=== PATIENT | female | born 1975 | race Caucasian/White ===

== ENCOUNTER 2021-09-22 08:48 | Observation (INO) | payer OTHER ==
[2021-09-22] MEDS ORDERED: NITROGLYCERIN OINT 1 INCH/GM PACKET TOPICAL STA (08:50)
[2021-09-22] MEDS ORDERED: ASPIRIN 81 MG PO STA (08:50)
--- NOTE | 2021-09-22 09:11 | ED ---
General Adult HPI - General Chief complaint: Chest Pain Stated complaint: Chest pain, WANDA Time Seen by Provider: 09/22/21 08:50 Source: patient, EMS, RN notes reviewed, old records reviewed Limitations: no limitations - History of Present Illness Initial comments: This is a 46-year-old female presents emergency Department complaining of chest pain. Patient states she was just admitted to the Hospital and Discharged Yesterday for Chest Pain. Patient States the Chest Pain However Has Returned and It Feels like an Elephant Sitting on Her Chest and She's Also Complaining of Difficulty Breathing. Patient states she's also been coughing quite a bit coughing up sputum. Patient states she did not get the COVID vaccine. Patient states she's had some abdominal pain but usually only with coughing. Patient denies any recent injury or trauma. Patient denies headache patient denies numbness weakness. Patient denies lightheadedness or dizziness. - Related Data Home Medications Medication Instructions Recorded Confirmed Albuterol Nebulized [Ventolin 2.5 mg INHALATION RT-Q4H PRN 09/22/21 09/22/21 Nebulized] Cyanocobalamin (Vitamin B-12) 1,000 mcg PO DAILY 09/22/21 09/22/21 [Vitamin B-12] DULoxetine HCL [Cymbalta] 60 mg PO DAILY 09/22/21 09/22/21 Dicyclomine [Bentyl] 20 mg PO TID 09/22/21 09/22/21 Furosemide [Lasix] 40 mg PO DAILY PRN 09/22/21 09/22/21 Levothyroxine Sodium [Synthroid] 50 mcg PO DAILY 09/22/21 09/22/21 Lidocaine 5% Patch [Lidoderm] 1 patch TRANSDERM DAILY 09/22/21 09/22/21 Magnesium Oxide 400 mg PO DAILY 09/22/21 09/22/21 Multivitamins, Thera [Multivitamin 1 tab PO DAILY 09/22/21 09/22/21 (formulary)] Ondansetron [Zofran] 4 mg PO Q6H PRN 09/22/21 09/22/21 Potassium Chloride [K-Tab ER] 20 meq PO BID 09/22/21 09/22/21 Topiramate [Topamax] 200 mg PO BID 09/22/21 09/22/21 Allergies Allergy/AdvReac Type Severity Reaction Status Date / Time adhesive tape Allergy Rash/Hives Verified 09/22/21 10:58 amoxicillin Allergy Anaphylaxis Verified 09/22/21 10:58 cefuroxime [From Ceftin] Allergy Anaphylaxis Verified 09/22/21 10:58 cephalexin [From Keflex] Allergy Anaphylaxis Verified 09/22/21 10:58 fluphenazine [From Prolixin] Allergy Anaphylaxis Verified 09/22/21 10:58 gabapentin [From Neurontin] Allergy Anaphylaxis Verified 09/22/21 10:58 haloperidol [From Haldol] Allergy Anaphylaxis Verified 09/22/21 10:58 ketorolac [From Toradol] Allergy Anaphylaxis Verified 09/22/21 10:58 methylphenidate Allergy Anaphylaxis Verified 09/22/21 10:58 [From Ritalin] NSAIDS (Non-Steroidal Allergy Anaphylaxis Verified 09/22/21 10:58 Anti-Inflamma Review of Systems ROS Statement: Those systems with pertinent positive or pertinent negative responses have been documented in the HPI. ROS Other: All systems not noted in ROS Statement are negative. Past Medical History Past Medical History: Asthma, Fibromyalgia, Musculoskeletal Disorder, Osteoarthritis (OA) History of Any Multi-Drug Resistant Organisms: None Reported Past Surgical History: Tubal Ligation Additional Past Surgical History / Comment(s): Chivo 2002 Past Psychological History: Bipolar, PTSD Smoking Status: Current every day smoker Past Alcohol Use History: None Reported Past Drug Use History: Marijuana General Exam - General Exam Comments Initial Comments: GENERAL: Patient is well-developed and well-nourished. Patient is nontoxic and well- hydrated and is in no acute distress. ENT: Neck is soft and supple. No significant lymphadenopathy is noted. Oropharynx is clear. Moist mucous membranes. Neck has full range of motion without eliciting any pain. EYES: The sclera were anicteric and conjunctiva were pink and moist. Extraocular movements were intact and pupils were equal round and reactive to light. Eyelids were unremarkable. PULMONARY: Unlabored respirations. Good breath sounds bilaterally. No audible rales rhonchi or wheezing was noted. CARDIOVASCULAR: There is a regular rate and rhythm without any murmurs gallops or rubs. ABDOMEN: Soft and nontender with normal bowel sounds. No area of tenderness could be palpated. No palpable organomegaly was noted. There is no palpable pulsatile mass. SKIN: Skin is clear with no lesions or rashes and otherwise unremarkable. NEUROLOGIC: Patient is alert and oriented x3. Cranial nerves II through XII are grossly intact. Motor and sensory are also intact. Normal speech, volume and content. Symmetrical smile. Cerebellar exam grossly intact. MUSCULOSKELETAL: Normal extremities with adequate strength and full range of motion. LYMPHATICS: No significant lymphadenopathy is noted PSYCHIATRIC: Normal psychiatric evaluation. Limitations: no limitations Course Vital Signs 09/22/21 09/22/21 09/22/21 08:49 09:54 11:00 Temperature 98 F Pulse Rate 88 Respiratory 20 18 18 Rate Blood Pressure 153/99 O2 Sat by Pulse 97 97 97 Oximetry 09/22/21 12:00 Temperature Pulse Rate 98 Respiratory 18 Rate Blood Pressure 118/87 O2 Sat by Pulse 99 Oximetry Medical Decision Making - Medical Decision Making EKG shows normal sinus rhythm at 85 bpm MI interval 176 QRS is 92 QT interval 352 QTC is 418. Patient's EKG shows no ST segment elevation or depression. Chest x-ray shows no acute abnormality. I spoke with because he agreed to admit the patient admitted the patient I wrote admitting orders. - Lab Data Result diagrams: 09/22/21 10:26 09/22/21 10:26 Lab Results 09/22/21 09/22/21 09/22/21 Range/Units 10:26 10:26 10:26 WBC 16.5 H (3.8-10.6) k/uL RBC 5.15 (3.80-5.40) m/uL Hgb 14.0 (11.4-16.0) gm/dL Hct 43.2 (34.0-46.0) % MCV 83.8 (80.0-100.0) fL MCH 27.2 (25.0-35.0) pg MCHC 32.5 (31.0-37.0) g/dL RDW 16.6 H (11.5-15.5) % Plt Count 304 (150-450) k/uL MPV 8.9 Neutrophils % 75 % Lymphocytes % 16 % Monocytes % 5 % Eosinophils % 2 % Basophils % 0 % Neutrophils # 12.4 H (1.3-7.7) k/uL Lymphocytes # 2.6 (1.0-4.8) k/uL Monocytes # 0.8 (0-1.0) k/uL Eosinophils # 0.3 (0-0.7) k/uL Basophils # 0.0 (0-0.2) k/uL Anisocytosis Slight PT 14.4 H (9.0-12.0) sec INR 1.4 H (<1.2) APTT 22.2 (22.0-30.0) sec Sodium 136 L (137-145) mmol/L Potassium 5.3 H (3.5-5.1) mmol/L Chloride 109 H (98-107) mmol/L Carbon Dioxide 21 L (22-30) mmol/L Anion Gap 6 mmol/L BUN 27 H (7-17) mg/dL Creatinine 0.74 (0.52-1.04) mg/dL Est GFR (CKD-EPI)AfAm >90 (>60 ml/min/1.73 sqM) Est GFR (CKD-EPI)NonAf >90 (>60 ml/min/1.73 sqM) Glucose 82 (74-99) mg/dL Calcium 9.9 (8.4-10.2) mg/dL Magnesium 2.4 H (1.6-2.3) mg/dL Total Bilirubin 0.6 (0.2-1.3) mg/dL AST 62 H (14-36) U/L ALT 68 H (4-34) U/L Alkaline Phosphatase 72 (38-126) U/L Troponin I (0.000-0.034) ng/mL Total Protein 5.9 L (6.3-8.2) g/dL Albumin 3.1 L (3.5-5.0) g/dL 09/22/21 Range/Units 10:26 WBC (3.8-10.6) k/uL RBC (3.80-5.40) m/uL Hgb (11.4-16.0) gm/dL Hct (34.0-46.0) % MCV (80.0-100.0) fL MCH (25.0-35.0) pg MCHC (31.0-37.0) g/dL RDW (11.5-15.5) % Plt Count (150-450) k/uL MPV Neutrophils % % Lymphocytes % % Monocytes % % Eosinophils % % Basophils % % Neutrophils # (1.3-7.7) k/uL Lymphocytes # (1.0-4.8) k/uL Monocytes # (0-1.0) k/uL Eosinophils # (0-0.7) k/uL Basophils # (0-0.2) k/uL Anisocytosis PT (9.0-12.0) sec INR (<1.2) APTT (22.0-30.0) sec Sodium (137-145) mmol/L Potassium (3.5-5.1) mmol/L Chloride (98-107) mmol/L Carbon Dioxide (22-30) mmol/L Anion Gap mmol/L BUN (7-17) mg/dL Creatinine (0.52-1.04) mg/dL Est GFR (CKD-EPI)AfAm (>60 ml/min/1.73 sqM) Est GFR (CKD-EPI)NonAf (>60 ml/min/1.73 sqM) Glucose (74-99) mg/dL Calcium (8.4-10.2) mg/dL Magnesium (1.6-2.3) mg/dL Total Bilirubin (0.2-1.3) mg/dL AST (14-36) U/L ALT (4-34) U/L Alkaline Phosphatase (38-126) U/L Troponin I <0.012 (0.000-0.034) ng/mL Total Protein (6.3-8.2) g/dL Albumin (3.5-5.0) g/dL Disposition Clinical Impression: Unstable angina pectoris Disposition: ADMITTED IP TO THIS HOSP Referrals: Lb Herrera MD [Primary Care Provider] - 1-2 days Time of Disposition: 12:22
[2021-09-22] MEDS ORDERED: ONDANSETRON 4 MG/2 ML VIAL IVP STA (09:25)
--- NOTE | 2021-09-22 09:46 | XR ---
EXAMINATION TYPE: XR chest 2V DATE OF EXAM: 09/22/2021 COMPARISON: NONE HISTORY: Chest pain, difficulty breathing TECHNIQUE: Frontal and lateral views of the chest are obtained. FINDINGS: Right jugular central venous catheter is in place. Distal tip is overlying the superior nemesio a cava. There are overlying leads. Patient is rotated. There is elevation of the right hemidiaphragm. There is no focal air space opacity, pleural effusion, or pneumothorax seen. The cardiac silhouette size is within normal limits. The osseous structures are intact, there is thoracic spondylosis. IMPRESSION: No acute cardiopulmonary process.
[2021-09-22 10:32] LABS: Anisocytosis Slight; Basophils % (A) 0 %; Eosinophils # (A) 0.3 k/uL (0-0.7); Eosinophils % (A) 2 %; HCT 43.2 % (34.0-46.0); Lymphocytes # (A) 2.6 k/uL (1.0-4.8); Lymphocytes % (A) 16 %; MCH 27.2 pg (25.0-35.0); MCHC 32.5 g/dL (31.0-37.0); MCV 83.8 fL (80.0-100.0); Mean Platelet Volume 8.9; Monocytes # (A) 0.8 k/uL (0-1.0); Monocytes % (A) 5 %; Neutrophils # (A) 12.4 k/uL (1.3-7.7); Neutrophils % (A) 75 %; Platelet Count 304 k/uL (150-450); RBC 5.15 m/uL (3.80-5.40); RDW 16.6 % (11.5-15.5); WBC 16.5 k/uL (3.8-10.6)
[2021-09-22] MEDS ORDERED: HYDROmorphone 0.5 MG/0.5 ML SYRINGE IVP STA (10:32)
[2021-09-22 10:49] LABS: INR 1.4 (<1.2); Partial Thromboplastin Time 22.2 sec (22.0-30.0); Prothrombin Time 14.4 sec (9.0-12.0)
[2021-09-22 10:53] LABS: ALT 68 U/L (4-34); African American GFR (CKD) >90 (>60 ml/min/1.73 sqM); Albumin 3.1 g/dL (3.5-5.0); Anion Gap 6 mmol/L; Blood Urea Nitrogen 27 mg/dL (7-17); Calcium 9.9 mg/dL (8.4-10.2); Carbon Dioxide 21 mmol/L (22-30); Chloride 109 mmol/L (98-107); Glucose 82 mg/dL (74-99); Non-African American GFR(CKD) >90 (>60 ml/min/1.73 sqM); Sodium 136 mmol/L (137-145); Total Bilirubin 0.6 mg/dL (0.2-1.3); Total Protein 5.9 g/dL (6.3-8.2)
[2021-09-22 11:06] LABS: AST 62 U/L (14-36); Alkaline Phosphatase 72 U/L (38-126); Magnesium 2.4 mg/dL (1.6-2.3); Potassium 5.3 mmol/L (3.5-5.1)
[2021-09-22] MEDS ORDERED: NITROGLYCERIN SL TABS 0.4 MG TAB SUBLINGUAL PRN (12:22)
[2021-09-22] MEDS ORDERED: DICYCLOMINE 20 MG TAB PO PRN (12:52)
[2021-09-22] MEDS ORDERED: ONDANSETRON 4 MG TAB PO PRN (12:52)
[2021-09-22] MEDS ORDERED: IOPAMIDOL CONTRAST (ORAL USE) VIAL PO PRN (12:56)
--- NOTE | 2021-09-22 13:04 | P.HPIM ---
History of Present Illness 46-year-old female came in with compensative chest pain pressure-like sensation patient was recently admitted to [facility] where she was evaluated by cardiology and she was told that she needs an outpatient stress test, echoc ardiogram was done at that time results of which is not available at this time. Patient is also complaining of lower abdominal pain and severe abdominal pain crampy as well as sharp and nonradiating. Patient says she is nauseous denied any vomiting denied any diarrhea. Patient's abdomen is soft patient does have some leukocytosis doesn't have any fever. I do not have any imaging studies availa ble clear medical records from [facility] and hospice will be obtained. We'll also obtain a CT of the abdomen with contrast to rule out any colitis or any nephrolithiasis, just surgery will be consulted cardiology was consulted here. EKG showed sinus rhythm, troponins are negative. Patient is moderately obese but that denied any history of sleep apnea and doesn't use any CPAP machine at home. REVIEW OF SYSTEMS: CONSTITUTIONAL: No fever, no malaise, no fatigue. HEENT: No recent visual problems or hearing problems. Denied any sore throat. CARDIOVASCULAR: No orthopnea, PND, no palpitations, no syncope. PULMONARY: No shortness of breath, no cough, no hemoptysis. GASTROINTESTINAL: As mentioned in HPI NEUROLOGICAL: No headaches, no weakness, no numbness. HEMATOLOGICAL: Denies any bleeding or petechiae. GENITOURINARY: Denies any burning micturition, frequency, or urgency. MUSCULOSKELETAL/RHEUMATOLOGICAL: Denies any joint pain, swelling, or any muscle pain. ENDOCRINE: Denies any polyuria or polydipsia. The rest of the 14-point review of systems is negative. PHYSICAL EXAMINATION: GENERAL: The patient is alert and oriented x3, not in any acute distress. Morbidly obese HEENT: Pupils are round and equally reacting to light. EOMI. No scleral icterus. No conjunctival pallor. Normocephalic, atraumatic. No pharyngeal erythema. No thyromegaly. CARDIOVASCULAR: S1 and S2 present. No murmurs, rubs, or gallops. PULMONARY: Chest is clear to auscultation, no wheezing or crackles. ABDOMEN: Soft, nontender, nondistended, normoactive bowel sounds. No palpable organomegaly. MUSCULOSKELETAL: No joint swelling or deformity. EXTREMITIES: No cyanosis, clubbing, or pedal edema. NEUROLOGICAL: Gross neurological examination did not reveal any focal deficits. SKIN: No rashes. Assessment and plan -Chest pain atypical will obtain medical records from [facility] patient will be monitored overnight cardiology was consulted. -Abdominal pain etiology is not clear will rule out any colitis gases will obtain a CT of the abdomen, just surgery was consulted. 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 we'll repeat the labs again tomorrow Hypothyroidism -Depression Mild elevated liver enzymes and repeat them again probability of nonalcoholic steatohepatitis -Leukocytosis without any evidence of superinfection at this time CT of the abdomen is being obtain because of complaints of abdominal pain DVT prophylaxis: Lovenox Past Medical History Past Medical History: Asthma, Fibromyalgia, Musculoskeletal Disorder, Osteoarthritis (OA) History of Any Multi-Drug Resistant Organisms: None Reported Past Surgical History: Tubal Ligation Additional Past Surgical History / Comment(s): Chivo 2002 Past Psychological History: Bipolar, PTSD Smoking Status: Current every day smoker Past Alcohol Use History: None Reported Past Drug Use History: Marijuana Medications and Allergies Home Medications Medication Instructions Recorded Confirmed Type Albuterol Nebulized [Ventolin 2.5 mg INHALATION RT-Q4H PRN 09/22/21 09/22/21 History Nebulized] Cyanocobalamin (Vitamin B-12) 1,000 mcg PO DAILY 09/22/21 09/22/21 History [Vitamin B-12] DULoxetine HCL [Cymbalta] 60 mg PO DAILY 09/22/21 09/22/21 History Dicyclomine [Bentyl] 20 mg PO TID 09/22/21 09/22/21 History Furosemide [Lasix] 40 mg PO DAILY PRN 09/22/21 09/22/21 History Levothyroxine Sodium [Synthroid] 50 mcg PO DAILY 09/22/21 09/22/21 History Lidocaine 5% Patch [Lidoderm] 1 patch TRANSDERM DAILY 09/22/21 09/22/21 History Magnesium Oxide 400 mg PO DAILY 09/22/21 09/22/21 History Multivitamins, Thera [Multivitamin 1 tab PO DAILY 09/22/21 09/22/21 History (formulary)] Ondansetron [Zofran] 4 mg PO Q6H PRN 09/22/21 09/22/21 History Potassium Chloride [K-Tab ER] 20 meq PO BID 09/22/21 09/22/21 History Topiramate [Topamax] 200 mg PO BID 09/22/21 09/22/21 History Allergies Allergy/AdvReac Type Severity Reaction Status Date / Time adhesive tape Allergy Rash/Hives Verified 09/22/21 10:58 amoxicillin Allergy Anaphylaxis Verified 09/22/21 10:58 cefuroxime [From Ceftin] Allergy Anaphylaxis Verified 09/22/21 10:58 cephalexin [From Keflex] Allergy Anaphylaxis Verified 09/22/21 10:58 fluphenazine [From Prolixin] Allergy Anaphylaxis Verified 09/22/21 10:58 gabapentin [From Neurontin] Allergy Anaphylaxis Verified 09/22/21 10:58 haloperidol [From Haldol] Allergy Anaphylaxis Verified 09/22/21 10:58 ketorolac [From Toradol] Allergy Anaphylaxis Verified 09/22/21 10:58 methylphenidate Allergy Anaphylaxis Verified 09/22/21 10:58 [From Ritalin] NSAIDS (Non-Steroidal Allergy Anaphylaxis Verified 09/22/21 10:58 Anti-Inflamma Physical Exam Vitals: Vital Signs Temp Pulse Resp BP Pulse Ox 09/22/21 12:00 98 18 118/87 99 09/22/21 11:00 18 97 09/22/21 09:54 18 97 09/22/21 08:49 98 F 88 20 153/99 97 Intake and Output 09/21/21 09/22/21 09/22/21 22:59 06:59 14:59 Other: Weight 158.757 kg Results CBC & Chem 7: 09/22/21 10:26 09/22/21 10:26 Labs: Abnormal Lab Results - Last 24 Hours (Table) 09/22/21 09/22/21 09/22/21 Range/Units 10:26 10:26 10:26 WBC 16.5 H (3.8-10.6) k/uL RDW 16.6 H (11.5-15.5) % Neutrophils # 12.4 H (1.3-7.7) k/uL PT 14.4 H (9.0-12.0) sec INR 1.4 H (<1.2) Sodium 136 L (137-145) mmol/L Potassium 5.3 H (3.5-5.1) mmol/L Chloride 109 H (98-107) mmol/L Carbon Dioxide 21 L (22-30) mmol/L BUN 27 H (7-17) mg/dL Magnesium 2.4 H (1.6-2.3) mg/dL AST 62 H (14-36) U/L ALT 68 H (4-34) U/L Total Protein 5.9 L (6.3-8.2) g/dL Albumin 3.1 L (3.5-5.0) g/dL
--- NOTE | 2021-09-22 15:16 | P.GSCN ---
<Summer Messer - Last Filed: 09/22/21 15:19> History of Present Illness Consult date: 09/22/21 History of present illness: CHIEF COMPLAINT: Chest pain Reason for consult lower abdominal pain HISTORY OF PRESENT ILLNESS: This is a 46-year-old female with a known prior history of morbid obesity, IBS, colitis, fatty liver, fibromyalgia and bipolar. Patient initially presents to the hospital with complaints of chest pain. Patient was just recently discharged from [facility] yesterday for chest pain. Patient reports that she is supposed to have an outpatient stress test. She also complains of right lower quadrant abdominal pain for the last 2 days. She has been having nausea. No vomiting. She reports regular bowel movements. Denies any fever, chills or sweats. Surgical services been consulted in regards to lower abdominal pain. Computed tomography scan of the abdomen and pelvis ordered by medicine service. PAST MEDICAL HISTORY: Asthma, bipolar, PTSD PAST SURGICAL HISTORY: Cholecystectomy, tubal ligation, uterine ablation, colonoscopy and EGD about 5 years ago patient reports there is no abnormality that she can. MEDICATIONS: See list. ALLERGIES: See list. SOCIAL HISTORY: No illicit drug use. Smoker REVIEW OF SYSTEMS: CONSTITUTIONAL: Denies fever or chills. HEENT: Denies blurred vision, vision changes, or eye pain. Denies hemoptysis ENDOCRINE: Denies heat or cold intolerance. CARDIOVASCULAR: Denies chest pain or pressure. RESPIRATORY: No shortness of breath. GASTROINTESTINAL: Please refer to HPI NEURO: Denies history of seizures. PSYCH: No depression or suicidal ideation HEMATOLOGIC: Denies bleeding disorders. LYMPHATIC: The patient denies any lumps and bumps around the neck. GENITOURINARY: Denies any blood in urine or increased urinary frequency. MUSCULOSKELETAL: Denies myalgias. Denies joint swelling. Denies decreased range of motion beyond patients baseline. SKIN: Denies pruitis. Denies rash. PHYSICAL EXAM: VITAL SIGNS: Reviewed GENERAL: Well-developed in no acute distress. HEENT: No sclera icterus. Extraocular movements grossly intact. Moist buccal mucosa. Head is atraumatic, normocephalic. Hears conversational speech. No nasal drainage. NECK: Supple without lymphadenopathy. CHEST: Non-labored respirations and equal bilateral excursions. CARDIOVASCULAR: Palpable 2+ radial pulses. ABDOMEN: Soft. Obese. Nondistended. Right lower quadrant tenderness. Pannus no evidence of cellulitis MUSCULOSKELETAL: No clubbing or cyanosis. NEUROLOGIC: No focal or lateralizing signs. Cranial nerves II through XII grossly intact. PSYCH: Appropriate affect. Alert and oriented to person, place and time. SKIN: Well perfused. Good skin turgor. LABORATORY DATA: WBC 16.5 hemoglobin 14 platelets 304 INR 1.4 Sodium 136 potassium 5.3 BUN 27 creatinine 0.74 glucose 82 Magnesium 2.4 AST 62 ALT 68 Troponin negative COVID-19 not detected EKG normal sinus rhythm IMAGING: Chest x-ray no acute cardiopulmonary process ASSESSMENT: 1. Right lower quadrant abdominal pain 2. Chest pain 3. Leukocytosis 4. Mildly elevated LFTs 5. History of IBS 6. History of colitis 7. History of fatty liver 8. Hyperkalemia 9. Morbid obesity PLAN: -Follow up on computed tomography scan of abdomen and pelvis -Further recommendations forthcoming per surgeon -Continue supportive care -Repeat labs in a.m. -Cardiology on consult for chest pain Thank you for this consultation Physician Tomographic Tech note has been reviewed by physician. Signing provider agrees with the documented findings, assessment, and plan of care. Past Medical History Past Medical History: Asthma, Fibromyalgia, Musculoskeletal Disorder, Osteoarthritis (OA) History of Any Multi-Drug Resistant Organisms: None Reported Past Surgical History: Cholecystectomy, Tubal Ligation Additional Past Surgical History / Comment(s): CHoly 2002 Past Psychological History: Bipolar, PTSD Smoking Status: Never smoker Past Alcohol Use History: None Reported Past Drug Use History: Marijuana Medications and Allergies Home Medications Medication Instructions Recorded Confirmed Type Albuterol Nebulized [Ventolin 2.5 mg INHALATION RT-Q4H PRN 09/22/21 09/22/21 History Nebulized] Cyanocobalamin (Vitamin B-12) 1,000 mcg PO DAILY 09/22/21 09/22/21 History [Vitamin B-12] DULoxetine HCL [Cymbalta] 60 mg PO DAILY 09/22/21 09/22/21 History Dicyclomine [Bentyl] 20 mg PO TID 09/22/21 09/22/21 History Furosemide [Lasix] 40 mg PO DAILY PRN 09/22/21 09/22/21 History Levothyroxine Sodium [Synthroid] 50 mcg PO DAILY 09/22/21 09/22/21 History Lidocaine 5% Patch [Lidoderm] 1 patch TRANSDERM DAILY 09/22/21 09/22/21 History Magnesium Oxide 400 mg PO DAILY 09/22/21 09/22/21 History Multivitamins, Thera [Multivitamin 1 tab PO DAILY 09/22/21 09/22/21 History (formulary)] Ondansetron [Zofran] 4 mg PO Q6H PRN 09/22/21 09/22/21 History Potassium Chloride [K-Tab ER] 20 meq PO BID 09/22/21 09/22/21 History Topiramate [Topamax] 200 mg PO BID 09/22/21 09/22/21 History Allergies Allergy/AdvReac Type Severity Reaction Status Date / Time adhesive tape Allergy Rash/Hives Verified 09/22/21 10:58 amoxicillin Allergy Anaphylaxis Verified 09/22/21 10:58 cefuroxime [From Ceftin] Allergy Anaphylaxis Verified 09/22/21 10:58 cephalexin [From Keflex] Allergy Anaphylaxis Verified 09/22/21 10:58 fluphenazine [From Prolixin] Allergy Anaphylaxis Verified 09/22/21 10:58 gabapentin [From Neurontin] Allergy Anaphylaxis Verified 09/22/21 10:58 haloperidol [From Haldol] Allergy Anaphylaxis Verified 09/22/21 10:58 ketorolac [From Toradol] Allergy Anaphylaxis Verified 09/22/21 10:58 methylphenidate Allergy Anaphylaxis Verified 09/22/21 10:58 [From Ritalin] NSAIDS (Non-Steroidal Allergy Anaphylaxis Verified 09/22/21 10:58 Anti-Inflamma Surgical - Exam Vital Signs Temp Pulse Resp BP Pulse Ox 98 F 88 20 153/99 97 09/22/21 08:49 09/22/21 08:49 09/22/21 08:49 09/22/21 08:49 09/22/21 08:49 Results - Labs 09/22/21 10:26 09/22/21 10:26 Abnormal Lab Results - Last 24 Hours (Table) 09/22/21 09/22/21 09/22/21 Range/Units 10:26 10:26 10:26 WBC 16.5 H (3.8-10.6) k/uL RDW 16.6 H (11.5-15.5) % Neutrophils # 12.4 H (1.3-7.7) k/uL PT 14.4 H (9.0-12.0) sec INR 1.4 H (<1.2) Sodium 136 L (137-145) mmol/L Potassium 5.3 H (3.5-5.1) mmol/L Chloride 109 H (98-107) mmol/L Carbon Dioxide 21 L (22-30) mmol/L BUN 27 H (7-17) mg/dL Magnesium 2.4 H (1.6-2.3) mg/dL AST 62 H (14-36) U/L ALT 68 H (4-34) U/L Total Protein 5.9 L (6.3-8.2) g/dL Albumin 3.1 L (3.5-5.0) g/dL Diabetes panel 09/22/21 Range/Units 10:26 Sodium 136 L (137-145) mmol/L Potassium 5.3 H (3.5-5.1) mmol/L Chloride 109 H (98-107) mmol/L Carbon Dioxide 21 L (22-30) mmol/L BUN 27 H (7-17) mg/dL Creatinine 0.74 (0.52-1.04) mg/dL Glucose 82 (74-99) mg/dL Calcium 9.9 (8.4-10.2) mg/dL AST 62 H (14-36) U/L ALT 68 H (4-34) U/L Alkaline Phosphatase 72 (38-126) U/L Total Protein 5.9 L (6.3-8.2) g/dL Albumin 3.1 L (3.5-5.0) g/dL Calcium panel 09/22/21 Range/Units 10:26 Calcium 9.9 (8.4-10.2) mg/dL Albumin 3.1 L (3.5-5.0) g/dL Pituitary panel 09/22/21 Range/Units 10:26 Sodium 136 L (137-145) mmol/L Potassium 5.3 H (3.5-5.1) mmol/L Chloride 109 H (98-107) mmol/L Carbon Dioxide 21 L (22-30) mmol/L BUN 27 H (7-17) mg/dL Creatinine 0.74 (0.52-1.04) mg/dL Glucose 82 (74-99) mg/dL Calcium 9.9 (8.4-10.2) mg/dL Adrenal panel 09/22/21 Range/Units 10:26 Sodium 136 L (137-145) mmol/L Potassium 5.3 H (3.5-5.1) mmol/L Chloride 109 H (98-107) mmol/L Carbon Dioxide 21 L (22-30) mmol/L BUN 27 H (7-17) mg/dL Creatinine 0.74 (0.52-1.04) mg/dL Glucose 82 (74-99) mg/dL Calcium 9.9 (8.4-10.2) mg/dL Total Bilirubin 0.6 (0.2-1.3) mg/dL AST 62 H (14-36) U/L ALT 68 H (4-34) U/L Alkaline Phosphatase 72 (38-126) U/L Total Protein 5.9 L (6.3-8.2) g/dL Albumin 3.1 L (3.5-5.0) g/dL <Deirdre Pittman - Last Filed: 09/23/21 10:57> History of Present Illness History of present illness: CHIEF COMPLAINT: Right lower quadrant abdominal pain HISTORY OF PRESENT ILLNESS: The patient is a 46-year-old female recently discharged from [facility] less than 2 days ago for chest pain. She reports requiring a stress echo to be performed as outpatient. Per cardiology assessment at that outside institution was unremarkable for acute myocardial event. Patient reports developing right lower quadrant abdominal pain at the facility. She denies having any general surgical assessment for abdominal pain. She reports past history of kidney stones. "This feels different." Patient reports a stabbing twisting sensation of the right lower quadrant. She reports gynecological history of tubal ligation including cholecystectomy. She reports history of ovarian cysts. She is aware of history of fatty liver disease. "I feel its my appendix." She reports past history of problems over 2 years ago with her appendix but no surgical intervention done at that time. General surgery is consulted for her abdominal pain PAST MEDICAL HISTORY: See list and reviewed PAST SURGICAL HISTORY: See list and reviewed MEDICATIONS: See list and reviewed ALLERGIES: See list and reviewed SOCIAL HISTORY: See list and reviewed FAMILY HISTORY: See list and reviewed REVIEW OF ORGAN SYSTEMS: CONSTITUTIONAL: No fevers or chills. Super morbid obesity, BMI of over 50 at 54.8 EYES: Denies any trouble with vision. No glasses. HEENT: No difficulties with hearing. No nosebleeds. No difficulty swallowing. RESPIRATORY: Has asthma. CARDIOVASCULAR: Reports chest pain. GASTROINTESTINAL: Reports fatty liver disease. Gallbladder removed. GENITOURINARY: Reports past history of kidney stones. NEUROLOGICAL: Has fibromyalgia. MUSCULOSKELETAL: Has back pain, stiffness or joint arthritis. SKIN: No current skin cancer. No rash. PSYCHIATRIC: Has bipolar disorder. Has posttraumatic stress disorder. ENDOCRINE: Has hypothyrodism. HEME/LYMPHATIC: Denies any lumps and bumps around the neck. No recent deep venous thrombosis. ALLERGY/IMMUNOLOGY: No immunoglobulin therapy. No immune deficiencies. BREAST: Denies current breast lumps, pain or nipple discharge. PHYSICAL EXAM: VITALS: Reviewed CONSTITUTIONAL: Well developed and in no acute distress. EYES: Conjuctivae without sclera icterus. Extraocular movements grossly intact. HEAD, EARS, NOSE, THROAT: Moist buccal mucosa. Head is atraumatic, normocephalic. Hears conversational speech. No nasal drainage. NECK: Supple. No JV distention. No gross thyroidomegaly. RESPIRATORY: Non-labored respirations and equal bilateral excursions. No gross wheezes. CARDIOVASCULAR: Regular rate and regular rhythm. ABDOMEN: Protuberant. Moderate-sized pannus, grade 4 panniculusis. No peritonitis. Tender right flank. LYMPH: No gross neck lymphadenopathy. MUSCULOSKELETAL: No clubbing or cyanosis. SKIN: Warm and well perfused with good skin turgor. NEUROLOGIC: Cranial nerves II through XII grossly intact. No focal or lateralizing signs. PSYCH: Alert and oriented to person, place and time. CLINCAL LABS: Reviewed. WBC on admission 16.5. INR elevated at 1.4. IMAGING: CT of the abdomen and pelvis reviewed with moderate artifact excluding the right lower quadrant for appropriate assessment. No large bilateral ovarian cysts identified. No gross inflammatory changes identified. This my independent interpretation. RECORDS: Outside records reviewed with discrepancy of patient's BMI including weight of over 70, weight 450 pounds. EKG was normal without ST changes. Echo results demonstrates normal sinus rhythm and ejection fraction 55-60%. Recommendation for outpatient stress test advised. CT of the abdomen pelvis on 09/20/2021 from outside institution report normal appendix. Cervical cyst 2.7 cm. OUTSIDE IMAGING: CT of the abdomen and pelvis on 09/20/2021 and reviewed without IV contrast demonstrates no inflammatory changes along the colon. No inflammatory changes along the right lower quadrant. Appendix identified without inflammatory changes and withi no ovarian cysts identified. n normal caliber. No features of bowel obstruction. This is my independent interpretation. ASSESSMENT: 1. Right lower quadrant abdominal pain and right flank pain. 2. Super morbid obesity BMI over 70 3. Bipolar disorder PLAN: 1. Both CT images were reviewed. No obvious finding for right lower quadrant abdominal pain. 2. Otherwise, recommend urinalysis for personal history of kidney stones including urine drug screen which may mimic her right lower quadrant/flank pain 3. Recommend recheck of weight due to moderate discrepancy of over 100 pounds between facilities in less than 2 days. Surgical - Exam Vital Signs Temp Pulse Resp BP Pulse Ox 98 F 88 20 153/99 97 09/22/21 08:49 09/22/21 08:49 09/22/21 08:49 09/22/21 08:49 09/22/21 08:49 Results - Labs 09/22/21 10:26 09/22/21 10:26 Abnormal Lab Results - Last 24 Hours (Table) 09/22/21 09/22/21 09/22/21 Range/Units 10:26 10:26 10:26 WBC 16.5 H (3.8-10.6) k/uL RDW 16.6 H (11.5-15.5) % Neutrophils # 12.4 H (1.3-7.7) k/uL PT 14.4 H (9.0-12.0) sec INR 1.4 H (<1.2) Sodium 136 L (137-145) mmol/L Potassium 5.3 H (3.5-5.1) mmol/L Chloride 109 H (98-107) mmol/L Carbon Dioxide 21 L (22-30) mmol/L BUN 27 H (7-17) mg/dL Magnesium 2.4 H (1.6-2.3) mg/dL AST 62 H (14-36) U/L ALT 68 H (4-34) U/L Total Protein 5.9 L (6.3-8.2) g/dL Albumin 3.1 L (3.5-5.0) g/dL Diabetes panel 09/22/21 Range/Units 10:26 Sodium 136 L (137-145) mmol/L Potassium 5.3 H (3.5-5.1) mmol/L Chloride 109 H (98-107) mmol/L Carbon Dioxide 21 L (22-30) mmol/L BUN 27 H (7-17) mg/dL Creatinine 0.74 (0.52-1.04) mg/dL Glucose 82 (74-99) mg/dL Calcium 9.9 (8.4-10.2) mg/dL AST 62 H (14-36) U/L ALT 68 H (4-34) U/L Alkaline Phosphatase 72 (38-126) U/L Total Protein 5.9 L (6.3-8.2) g/dL Albumin 3.1 L (3.5-5.0) g/dL Calcium panel 09/22/21 Range/Units 10:26 Calcium 9.9 (8.4-10.2) mg/dL Albumin 3.1 L (3.5-5.0) g/dL Pituitary panel 09/22/21 Range/Units 10:26 Sodium 136 L (137-145) mmol/L Potassium 5.3 H (3.5-5.1) mmol/L Chloride 109 H (98-107) mmol/L Carbon Dioxide 21 L (22-30) mmol/L BUN 27 H (7-17) mg/dL Creatinine 0.74 (0.52-1.04) mg/dL Glucose 82 (74-99) mg/dL Calcium 9.9 (8.4-10.2) mg/dL Adrenal panel 09/22/21 Range/Units 10:26 Sodium 136 L (137-145) mmol/L Potassium 5.3 H (3.5-5.1) mmol/L Chloride 109 H (98-107) mmol/L Carbon Dioxide 21 L (22-30) mmol/L BUN 27 H (7-17) mg/dL Creatinine 0.74 (0.52-1.04) mg/dL Glucose 82 (74-99) mg/dL Calcium 9.9 (8.4-10.2) mg/dL Total Bilirubin 0.6 (0.2-1.3) mg/dL AST 62 H (14-36) U/L ALT 68 H (4-34) U/L Alkaline Phosphatase 72 (38-126) U/L Total Protein 5.9 L (6.3-8.2) g/dL Albumin 3.1 L (3.5-5.0) g/dL Assessment and Plan (1) Right lower quadrant abdominal pain Current Visit: Yes Status: Acute Code(s): R10.31 - RIGHT LOWER QUADRANT PAIN SNOMED Code(s): 676430203 (2) Morbid obesity with BMI of 70 and over, adult Current Visit: Yes Status: Acute Code(s): E66.01 - MORBID (SEVERE) OBESITY DUE TO EXCESS CALORIES; Z68.45 - BODY MASS INDEX [BMI] 70 OR GREATER, ADULT SNOMED Code(s): 672819952 (3) Bipolar disease, chronic Current Visit: Yes Status: Acute Code(s): F31.9 - BIPOLAR DISORDER, UNSPECIFIED SNOMED Code(s): 26522915 (4) Right flank pain Current Visit: Yes Status: Acute Code(s): R10.9 - UNSPECIFIED ABDOMINAL PAIN SNOMED Code(s): 045524768 (5) Atypical chest pain Current Visit: Yes Status: Acute Code(s): R07.89 - OTHER CHEST PAIN SNOMED Code(s): 998166472
[2021-09-22] MEDS: HYDROmorphone 0.5 MG/0.5 ML SYRINGE IVP PRN ×2 (15:57→20:17)
[2021-09-22] MEDS: ONDANSETRON 4 MG/2 ML VIAL IVP PRN (15:57)
[2021-09-22] MEDS: ALBUTEROL NEBULIZED 2.5 MG/3 ML INHALATION PRN ×2 (16:10→20:22)
--- NOTE | 2021-09-22 16:39 | CT ---
EXAMINATION TYPE: CT abdomen pelvis w con DATE OF EXAM: 09/22/2021 COMPARISON: NONE HISTORY: 46-year-old female abdominal pain and vomiting TECHNIQUE: Contiguous axial scanning of the abdomen and pelvis following administration of 100 ml Iso narda 300 IV contrast. Coronal/sagittal reconstructions performed. CT DLP: 2775.8 mGycm Automated exposure control for dose reduction was used. FINDINGS: Heart normal size without pericardial effusion. Strandy right basilar atelectasis. Eventration mid to posterior right hemidiaphragm. The patient is decentered in the gantry and the anterolateral right lateral aspect of the abdomen is cut off. There is also diffuse breathing motion. Liver enlarged at 22.6 cm. Cholecystectomy clips. Adrenal glands, spleen, and pancreas are no gross abnormality. There are hypodense lesions within the left kidney measuring up to 2.3 cm probably representing cysts . No definite right renal lesion. No dilated small bowel, free fluid, or free air. No mesenteric or retroperitoneal lymphadenopathy bertin jackelyn identified. Oral contrast material has extended to the distal transverse colon. There is mild overall stool burde n. Bladder distended. Uterus anteverted. Both ovaries are visualized. Pelvic phleboliths. No abnormal fl uid collection in the pelvis or pelvic lymphadenopathy seen. Bones: Hypertrophic facet arthropathy with lumbar spine. Moderate degenerative disc disease L5-S1. Mi ld degenerative change both hips. IMPRESSION: 1. VERY LIMITED EXAM. THE PATIENT IS VERY LARGE AND THE RIGHT ANTEROLATERAL ASPECT OF THE ABDOMEN IS CUT OFF. ALSO, THE PATIENT COULD NOT CONTINUE WITH THE EXAM. DELAYED IMAGES ARE NOT OBTAINED. 2. HEPATOMEGALY AT 22.6 CM. 3. NO EVIDENCE FOR BOWEL OBSTRUCTION. STATUS POST CHOLECYSTECTOMY. 4. A COUPLE INDETERMINATE HYPODENSE LESIONS WITHIN THE LEFT KIDNEY MEASURING UP TO 2.3 CM. CYSTS ARE SUSPECTED. CONSIDER 6 MONTH FOLLOW-UP CT TO CONFIRM STABILITY AND TO BETTER CHARACTERIZE WHEN THE PAT IENT IS MORE COOPERATIVE.
[2021-09-22] MEDS: NITROGLYCERIN OINT 1 INCH/GM PACKET TOPICAL SCH (19:25)
[2021-09-22] MEDS: FAMOTIDINE 20 MG TAB PO SCH (20:15)
[2021-09-22] MEDS: TOPIRAMATE 100 MG TAB PO SCH (20:16)
[2021-09-23] MEDS: NITROGLYCERIN OINT 1 INCH/GM PACKET TOPICAL SCH ×4 (00:40→17:12)
[2021-09-23] MEDS: HYDROmorphone 0.5 MG/0.5 ML SYRINGE IVP PRN ×2 (02:06→06:34)
[2021-09-23] MEDS: ONDANSETRON 4 MG/2 ML VIAL IVP PRN ×4 (02:10→23:28)
[2021-09-23] MEDS: LEVOTHYROXINE 50 MCG TAB PO SCH (05:13)
[2021-09-23] MEDS: ALBUTEROL NEBULIZED 2.5 MG/3 ML INHALATION PRN ×5 (05:34→19:32)
[2021-09-23] MEDS: DULoxetine HCL 60 MG CAPSULE.DR PO SCH (09:26)
[2021-09-23] MEDS: CYANOCOBALAMIN 500 MCG TAB PO SCH (09:26)
[2021-09-23] MEDS: FAMOTIDINE 20 MG TAB PO SCH ×2 (09:26→19:24)
[2021-09-23] MEDS: MAGNESIUM OXIDE 400 MG TAB PO SCH (09:26)
[2021-09-23] MEDS: ENOXAPARIN 40 MG/0.4 ML SYRINGE SQ SCH (09:27)
[2021-09-23] MEDS: ASPIRIN 325 MG TAB PO SCH (09:27)
[2021-09-23] MEDS: TOPIRAMATE 100 MG TAB PO SCH ×2 (09:31→19:24)
[2021-09-23] MEDS ORDERED: BENZOCAINE/MENTHOL LOZENG 1 EACH LOZENGE MUCOUS MEM PRN (10:43)
[2021-09-23] MEDS ORDERED: guaiFENesin SYRUP 100MG/5ML 200 MG/10 ML CUP PO PRN (10:44)
--- NOTE | 2021-09-23 10:48 | P.PN ---
Subjective Progress Note Date: 09/23/21 46-year-old female came in with compensative chest pain pressure-like sensation patient was recently admitted to [facility] where she was evaluated by cardiology and she was told that she needs an outpatient stress test, echocardiogram was done at that time results of which is not available at this time. Patient is also complaining of lower abdominal pain and severe abdominal pain crampy as well as sharp and nonradiating. Patient says she is nauseous denied any vomiting denied any diarrhea. Patient's abdomen is soft patient does have some leukocytosis doesn't have any fever. I do not have any imaging studies available clear medical records from [facility] and [facility] will be obtained. We'll also obtain a CT of the abdomen with contrast to rule out any colitis or any nephrolithiasis, just surgery will be consulted cardiology was consulted here. EKG showed sinus rhythm, troponins are negative. Patient is moderately obese but that denied any history of sleep apnea and doesn't use any CPAP machine at home. 09/23/2021 Patient is evaluated today resting in the bed. She does complain of some chronic back pain that is confirmed for degenerative disc disease on abdominal pelvis CT. In addition she is complaining of some mild abdominal pain that is tender to palpation. She is complaining of some nausea, denies any vomiting, reports mild diarrhea without blood in the stool. She is also complaining of a congested cough with sputum production. She states that her chest is un comfortable due to cough, pain is reproducible to palpation over the left and right chest wall. She does report pain in her left arm however when palpated patient states it is tender there as well. In addition patient states that her pain is worse with inspiration and expiration. She denies any dizziness or lightheadedness, or palpitations. She states that she gets this cough about once a year and they usually give her Robitussin with codeine for her. In addition patient was asking for an increase in her Dilaudid. We are pending a formal cardiology evaluation. Labs are pending from today. Patient is afebrile, blood pressure 144/82 she is 90% on room air. We do not have any reports from [facility]. ROS Constitutional: Denied any fatigue denied any fever. Cardio vascular: Denies palpitations. Does report chest pain denies radiation does report left arm pain however. Left chest pain is reproducible. Gastrointestinal: Reports nausea, denies vomiting. Reports mild diarrhea, denies blood in the stool. : Denies dysuria, urgency frequency. Pulmonary: Denied any shortness of breath, reports productive cough. Neurologic denied any new focal deficits All inpatient medications were reviewed and appropriate changes in these medications as dictated in the interval history and assessment and plan. PHYSICAL EXAMINATION: GENERAL: The patient is alert and oriented x3, not in any acute distress. Morbidly obese HEENT: Pupils are round and equally reacting to light. EOMI. No scleral icterus. No conjunctival pallor. Normocephalic, atraumatic. No pharyngeal erythema. No thyromegaly. CARDIOVASCULAR: S1 and S2 present. No murmurs, rubs, or gallops. PULMONARY: Chest is clear to auscultation, no wheezing or crackles. ABDOMEN: Soft, nontender, nondistended, normoactive bowel sounds. No palpable organomegaly. MUSCULOSKELETAL: No joint swelling or deformity. EXTREMITIES: No cyanosis, clubbing, or pedal edema. NEUROLOGICAL: Gross neurological examination did not reveal any focal deficits. SKIN: No rashes. Assessment and plan -Chest pain atypical will obtain medical records from [facility], echo pending Patient is reproducible and patient states the pain is worse with inspiration and expiration most likely related to her chronic cough. -Abdominal pain etiology is not clear will rule out any colitis gases will obtain a CT of the abdomen, gen sx - pending review abdominal pelvis CT by surgical team. Patient does report some diarrhea with leukocytosis. Abdominal pelvis CT did not show any colitis. -History of asthmatic bronchitis patient, patient presents with a congested cough, could be a possible exacerbation. We will treat with steroids. -Elevated liver enzymes, abdominal pelvis CT does show some hepatomegaly. Hepatitis panel ordered -fibromyalgia -Hyperkalemia secondary to hemolysis, pending repeat -Hypothyroidism -Depression Mild elevated liver enzymes and repeat them again probability of nonalcoholic steatohepatitis -Leukocytosis without any evidence of superinfection at this time CT of the abdomen is being obtain because of complaints of abdominal pain DVT prophylaxis: Lovenox GI prophylaxis: Pepcid Objective - Vital Signs Vital signs: Vital Signs Temp 98.5 F 09/23/21 07:00 Pulse 80 09/23/21 08:54 Resp 18 09/23/21 08:00 BP 144/82 09/23/21 07:00 Pulse Ox 98 09/23/21 07:00 Intake & Output 09/22/21 09/23/21 09/23/21 18:59 06:59 18:59 Weight 158.757 kg Other: Voiding Method Toilet # Voids 1 2 # Bowel Movements 1 - Labs CBC & Chem 7: 09/22/21 10:26 09/22/21 10:26 Labs: Abnormal Lab Results - Last 24 Hours (Table) 09/22/21 09/22/21 Range/Units 10:26 10:26 PT 14.4 H (9.0-12.0) sec INR 1.4 H (<1.2) Sodium 136 L (137-145) mmol/L Potassium 5.3 H (3.5-5.1) mmol/L Chloride 109 H (98-107) mmol/L Carbon Dioxide 21 L (22-30) mmol/L BUN 27 H (7-17) mg/dL Magnesium 2.4 H (1.6-2.3) mg/dL AST 62 H (14-36) U/L ALT 68 H (4-34) U/L Total Protein 5.9 L (6.3-8.2) g/dL Albumin 3.1 L (3.5-5.0) g/dL Assessment and Plan Time with Patient: Greater than 30
[2021-09-23] MEDS: HYDROmorphone 1 MG/ML 1 ML SYRINGE IVP PRN ×3 (11:15→23:26)
[2021-09-23] MEDS: predniSONE 20 MG TAB PO SCH (11:22)
--- NOTE | 2021-09-23 12:02 | P.CRDCN ---
History of Present Illness Consult date: 09/23/21 Requesting physician: Dakota Garay Reason for Consult (text): unstable angina Chief complaint: shortness of breath, cough, abdominal pain, chest pain History of present illness: This is a pleasant 46-year-old female patient who recently moved here from [place]. She has a history of asthma, fibromyalgia, obesity, bipolar, post BX chest disorder, questionable history of smoking and marijuana use. She denies smoking but smoking history as noted in her chart. Presented to the [facility] department with complaints of shortness of breath, right lower abdominal pain, nausea, diarrhea, chest pain and cough with green brown sputum. She is apparently recently at [facility] and discharged from there. Laboratory values showed negative troponin 3. His x-ray shows no acute cardiopulmonary process. Computed tomography scan of the abdomen and pelvis was limited due to patient's size and inability to tolerate exam. She is being followed by surgery. According to the patient she had COVID-19 in January of this year and has had chest discomfort since then but over the last several days the chest pain has increased worse with deep inspiration and coughing with tend erness to palpation over the entire chest wall. Her vital signs and stable. EKG showed sinus rhythm with no acute ST-T wave abnormalities. She feels that Dilaudid is helpful for her pain and Zofran helps the nausea. Past Medical History Past Medical History: Asthma, Fibromyalgia, Musculoskeletal Disorder, Osteoarthritis (OA) History of Any Multi-Drug Resistant Organisms: None Reported Past Surgical History: Cholecystectomy, Tubal Ligation Additional Past Surgical History / Comment(s): CHoly 2002 Past Psychological History: Bipolar, PTSD Smoking Status: Never smoker Past Alcohol Use History: None Reported Past Drug Use History: Marijuana Medications and Allergies Home Medications Medication Instructions Recorded Confirmed Type Albuterol Nebulized [Ventolin 2.5 mg INHALATION RT-Q4H PRN 09/22/21 09/22/21 History Nebulized] Cyanocobalamin (Vitamin B-12) 1,000 mcg PO DAILY 09/22/21 09/22/21 History [Vitamin B-12] DULoxetine HCL [Cymbalta] 60 mg PO DAILY 09/22/21 09/22/21 History Dicyclomine [Bentyl] 20 mg PO TID 09/22/21 09/22/21 History Furosemide [Lasix] 40 mg PO DAILY PRN 09/22/21 09/22/21 History Levothyroxine Sodium [Synthroid] 50 mcg PO DAILY 09/22/21 09/22/21 History Lidocaine 5% Patch [Lidoderm] 1 patch TRANSDERM DAILY 09/22/21 09/22/21 History Magnesium Oxide 400 mg PO DAILY 09/22/21 09/22/21 History Multivitamins, Thera [Multivitamin 1 tab PO DAILY 09/22/21 09/22/21 History (formulary)] Ondansetron [Zofran] 4 mg PO Q6H PRN 09/22/21 09/22/21 History Potassium Chloride [K-Tab ER] 20 meq PO BID 09/22/21 09/22/21 History Topiramate [Topamax] 200 mg PO BID 09/22/21 09/22/21 History Allergies Allergy/AdvReac Type Severity Reaction Status Date / Time adhesive tape Allergy Rash/Hives Verified 09/22/21 10:58 amoxicillin Allergy Anaphylaxis Verified 09/22/21 10:58 cefuroxime [From Ceftin] Allergy Anaphylaxis Verified 09/22/21 10:58 cephalexin [From Keflex] Allergy Anaphylaxis Verified 09/22/21 10:58 fluphenazine [From Prolixin] Allergy Anaphylaxis Verified 09/22/21 10:58 gabapentin [From Neurontin] Allergy Anaphylaxis Verified 09/22/21 10:58 haloperidol [From Haldol] Allergy Anaphylaxis Verified 09/22/21 10:58 ketorolac [From Toradol] Allergy Anaphylaxis Verified 09/22/21 10:58 methylphenidate Allergy Anaphylaxis Verified 09/22/21 10:58 [From Ritalin] NSAIDS (Non-Steroidal Allergy Anaphylaxis Verified 09/22/21 10:58 Anti-Inflamma Physical Exam Vitals: Vital Signs Temp Pulse Pulse Resp BP BP BP 09/23/21 08:54 80 09/23/21 08:41 80 09/23/21 08:00 94 18 09/23/21 07:00 98.5 F 94 18 144/82 09/23/21 05:44 70 09/23/21 05:37 89 09/23/21 03:08 97.0 F L 75 18 134/82 09/23/21 01:16 86 16 09/22/21 20:32 84 09/22/21 20:23 97 09/22/21 20:05 97.7 F 86 16 127/86 09/22/21 19:25 86 16 09/22/21 16:19 98 09/22/21 16:13 100 09/22/21 14:23 97.8 F 100 18 129/85 09/22/21 13:09 98 F 98 18 118/87 09/22/21 12:00 98 18 118/87 Pulse Ox 09/23/21 08:54 09/23/21 08:41 09/23/21 08:00 09/23/21 07:00 98 09/23/21 05:44 09/23/21 05:37 09/23/21 03:08 96 09/23/21 01:16 09/22/21 20:32 09/22/21 20:23 99 09/22/21 20:05 97 09/22/21 19:25 09/22/21 16:19 09/22/21 16:13 09/22/21 14:23 97 09/22/21 13:09 99 09/22/21 12:00 99 Intake and Output 09/22/21 09/23/21 09/23/21 22:59 06:59 14:59 Other: Voiding Method Toilet # Voids 1 2 # Bowel Movements 1 PHYSICAL EXAMINATION: This is a 46-year-old female in no apparent distress at the time of my examination. VITAL SIGNS: Blood pressure 144/82, heart rate 80, respirations 18, temp 98.5F. Patient is 98 % on liters via nasal cannula. HEENT: Head is atraumatic, normocephalic. Pupils are equal, round. Sclerae anic teric. Conjunctivae are clear. Mucous membranes of the mouth are moist. Neck is supple. jugular venous pressure difficult to assess due to patient's size. No carotid bruit is heard. CHEST EXAMINATION: Lungs reveal wheezing throughout all lung kumari. No rales or rhonchi. Respirations even and nonlabored. Chest wall tenderness with palpation. HEART EXAMINATION: Heart regular, positive S1 and S2. No S3. No S4. No clicks, rubs or murmurs. ABDOMEN: Soft, obese, right lower abdomen tenderness. Bowel sounds are heard. No organomegaly noted. EXTREMITIES: 2+ peripheral pulses with no evidence of peripheral edema and no calf tenderness noted. NEUROLOGIC EXAMINATION: Patient is awake, alert and oriented x3. Results 09/22/21 10:26 09/22/21 10:26 Cardiac Enzymes 09/22/21 09/22/21 Range/Units 17:15 22:12 Troponin I <0.012 <0.012 (0.000-0.034) ng/mL Current Medications Generic Name Dose Route Start Last Admin Trade Name Freq PRN Reason Stop Dose Admin Hydrocodone Bitart/Acetaminophen 1 each 09/23/21 10:44 Hydrocodone/Apap 5-325mg 1 Each Tab PO Q6HR PRN Pain Albuterol Sulfate 2.5 mg 09/22/21 12:52 09/23/21 08:40 Albuterol Nebulized 2.5 Mg/3 Ml INHALATION 2.5 mg RT-Q4H PRN Administration Shortness Of Breath Aspirin 325 mg 09/23/21 09:00 09/23/21 09:27 Aspirin 325 Mg Tab PO 325 mg DAILY KHANG Administration Benzocaine/Menthol 1 each 09/23/21 10:43 Benzocaine/Menthol Lozeng 1 Each Lozenge MUCOUS MEM Q4HR PRN Cough Cyanocobalamin 1,000 mcg 09/23/21 09:00 09/23/21 09:26 Cyanocobalamin 500 Mcg Tab PO 1,000 mcg DAILY KHANG Administration Dicyclomine HCl 20 mg 09/22/21 12:52 Dicyclomine 20 Mg Tab PO TID PRN Diarrhea Duloxetine HCl 60 mg 09/23/21 09:00 09/23/21 09:26 Duloxetine Hcl 60 Mg Capsule.Dr PO 60 mg DAILY KHANG Administration Enoxaparin Sodium 40 mg 09/23/21 09:00 09/23/21 09:27 Enoxaparin 40 Mg/0.4 Ml Syringe SQ 40 mg DAILY KHANG Administration Famotidine 20 mg 09/22/21 21:00 09/23/21 09:26 Famotidine 20 Mg Tab PO 20 mg BID KHANG Administration Guaifenesin 200 mg 09/23/21 10:44 Guaifenesin Syrup 100mg/5ml 200 Mg/10 Ml Cup PO Q6HR PRN Cough Hydromorphone HCl 1 mg 09/23/21 10:44 09/23/21 11:15 Hydromorphone 1 Mg/Ml 1 Ml Syringe IVP 1 mg Q6HR PRN Administration Pain Iopamidol 30 ml 09/22/21 12:56 Iopamidol Contrast (Oral Use) Vial PO 09/23/21 12:[address] Scan Levothyroxine Sodium 50 mcg 09/23/21 06:30 09/23/21 05:13 Levothyroxine 50 Mcg Tab PO 50 mcg DAILY@0630 KHANG Administration Magnesium Oxide 400 mg 09/23/21 09:00 09/23/21 09:26 Magnesium Oxide 400 Mg Tab PO 400 mg DAILY KHANG Administration Nitroglycerin 0.4 mg 09/22/21 12:22 Nitroglycerin Sl Tabs 0.4 Mg Tab SUBLINGUAL Q5M PRN Chest Pain Nitroglycerin 1 inch 09/22/21 18:00 09/23/21 05:13 Nitroglycerin Oint 1 Inch/Gm Packet TOPICAL Not Given Q6HR KHANG Ondansetron HCl 4 mg 09/22/21 15:45 09/23/21 09:32 Ondansetron 4 Mg/2 Ml Vial IVP 4 mg Q6HR PRN Administration Nausea And Vomiting Prednisone 40 mg 09/23/21 10:45 09/23/21 11:22 Prednisone 20 Mg Tab PO 09/28/21 10:46 40 mg DAILY KHANG Administration Topiramate 200 mg 09/22/21 21:00 09/23/21 09:31 Topiramate 100 Mg Tab PO 200 mg BID KHANG Administration Intake and Output 09/22/21 09/23/21 09/23/21 22:59 06:59 14:59 Other: Voiding Method Toilet # Voids 1 2 # Bowel Movements 1 09/22/21 10:26 09/22/21 10:26 Assessment and Plan Assessment: #1 symptoms of shortness of breath with productive cough with green brown sputum and elevated white count, likely tracheobronchitis #2 abdominal pain #3 chest pain, reproducible, worse with deep inspiration and coughing, cardiac enzymes have been negative and acute coronary event has been ruled out #4 morbid obesity Plan: From cardiology's perspective chest pain appears to be musculoskeletal in nature and not cardiac in origin. We will obtain a 2-D echo with Doppler study to assess cardiac structure and function. If the echocardiogram shows no significant abnormalities will follow the patient on an as-needed basis. Please do not hesitate to contact us with questions. PRESIDENT [employer] CHIEF [employer]ER[employer] OFFICER note has been reviewed, I agree with a documented findings and plan of care. Patient was seen and examined.
[2021-09-23 12:18] LABS: HCT 41.7 % (37.2-46.3); HGB 12.4 g/dL (12.0-15.0); MCH 25.7 pg (27.0-32.0); MCHC 29.7 g/dL (32.0-37.0); MCV 86.3 fL (80.0-97.0); Mean Platelet Volume 10.5 fL (9.5-12.2); Platelet Count 328 X 10*3/uL (140-440); RBC 4.83 X 10*6/uL (4.10-5.20); RDW 18.4 % (11.5-14.5); WBC 16.44 X 10*3/uL (4.50-10.00)
[2021-09-23] MEDS: HYDROcodone/APAP 5-325MG 1 EACH TAB PO PRN (12:44)
[2021-09-23 13:14] LABS: African American GFR (CKD) 103.9 (60.0-200.0); Albumin 3.4 g/dL (3.8-4.9); Albumin/Globulin Ratio 1.7 (1.60-3.17); Anion Gap 11.3 mmol/L (4.00-12.00); BUN/Creat Ratio 25.63 Ratio (12.00-20.00); Blood Urea Nitrogen 20.5 mg/dL (9.0-27.0); Calcium 8.5 mg/dL (8.7-10.3); Carbon Dioxide 24.7 mmol/L (21.6-31.8); Non-African American GFR(CKD) 89.7 (60.0-200.0); Potassium 3.8 mmol/L (3.5-5.5); Total Bilirubin 0.3 mg/dL (0.30-1.20); Total Protein 5.4 g/dL (6.2-8.2)
[2021-09-23 13:15] LABS: Chol/HDL Ratio 3.52 Ratio; HDL Cholesterol 48.6 mg/dL (40.00-60.00); VLDL Calculation 45.4 mg/dL (5.00-40.00)
--- NOTE | 2021-09-23 15:29 | P.PN ---
Subjective Progress Note Date: 09/23/21 CHIEF COMPLAINT: Right lower quadrant abdominal pain HISTORY OF PRESENT ILLNESS: The patient is a 46-year-old female recently discharged from [facility] less than 2 days ago for chest pain. She presents at this facility with recurrent chest pain and right lower quadrant abdominal pain. Outside imaging reviewed demonstrating no evidence of appendicitis. Features of CT reviewed. REVIEW OF ORGAN SYSTEMS: No fevers or chills. No shortness of breath. Has atypical chest pain. PHYSICAL EXAM: VITALS: Reviewed CONSTITUTIONAL: Well developed and in no acute distress. EYES: Conjuctivae without sclera icterus. Extraocular movements grossly intact. HEAD, EARS, NOSE, THROAT: Moist buccal mucosa. Head is atraumatic, normocephalic. Hears conversational speech. No nasal drainage. RESPIRATORY: Non-labored respirations and equal bilateral excursions. No gross wheezes. CARDIOVASCULAR: Regular rate and regular rhythm. ABDOMEN: Protuberant. Moderate-sized pannus, grade 4 panniculusis. Tender right flank. No peritonitis. MUSCULOSKELETAL: No clubbing or cyanosis. SKIN: Warm and well perfused with good skin turgor. NEUROLOGIC: Cranial nerves II through XII grossly intact. No focal or lateralizing signs. PSYCH: Alert and oriented to person, place and time. CLINCAL LABS: Reviewed. WBC over 16,000 ASSESSMENT: 1. Right lower quadrant abdominal pain and right flank pain. 2. Super morbid obesity BMI over 70 3. Bipolar disorder PLAN: 1. Recommend urine drug screen and urinalysis for kidney stones including history of right lower quadrant and right flank pain 2. All questions addressed. Objective - Vital Signs Vital signs: Vital Signs Temp 98.5 F 09/23/21 07:00 Pulse 84 09/23/21 12:07 Resp 18 09/23/21 08:00 BP 144/82 09/23/21 07:00 Pulse Ox 98 09/23/21 07:00 Intake & Output 09/22/21 09/23/21 09/23/21 18:59 06:59 18:59 Weight 158.757 kg Other: Voiding Method Toilet # Voids 1 2 # Bowel Movements 1 - Labs CBC & Chem 7: 09/23/21 06:30 09/23/21 06:30 Labs: Abnormal Lab Results - Last 24 Hours (Table) 09/23/21 09/23/21 Range/Units 06:30 06:30 WBC 16.44 H (4.50-10.00) X 10*3/uL MCH 25.7 L (27.0-32.0) pg MCHC 29.7 L (32.0-37.0) g/dL RDW 18.4 H (11.5-14.5) % BUN/Creatinine Ratio 25.63 H (12.00-20.00) Ratio Calcium 8.5 L (8.7-10.3) mg/dL ALT 60 H (8-44) U/L Total Protein 5.4 L (6.2-8.2) g/dL Albumin 3.4 L (3.8-4.9) g/dL Triglycerides 227.00 H (0.00-149.00) mg/dL VLDL Cholesterol, Calc 45.40 H (5.00-40.00) mg/dL Assessment and Plan (1) Right lower quadrant abdominal pain Current Visit: Yes Status: Acute Code(s): R10.31 - RIGHT LOWER QUADRANT PAIN SNOMED Code(s): 501673385 (2) Morbid obesity with BMI of 70 and over, adult Current Visit: Yes Status: Acute Code(s): E66.01 - MORBID (SEVERE) OBESITY DUE TO EXCESS CALORIES; Z68.45 - BODY MASS INDEX [BMI] 70 OR GREATER, ADULT SNOMED Code(s): 643240443 (3) Bipolar disease, chronic Current Visit: Yes Status: Acute Code(s): F31.9 - BIPOLAR DISORDER, UNSPECIFIED SNOMED Code(s): 64275080 (4) Right flank pain Current Visit: Yes Status: Acute Code(s): R10.9 - UNSPECIFIED ABDOMINAL PAIN SNOMED Code(s): 215940994 (5) Atypical chest pain Current Visit: Yes Status: Acute Code(s): R07.89 - OTHER CHEST PAIN SNOMED Code(s): 124473407
[2021-09-23] MEDS ORDERED: metroNIDAZOLE-NS PMX 500 MG in SALINE 1 100ML.BAG IVPB SCH (17:15)
--- NOTE | 2021-09-23 17:27 | ECHOF ---
Referral Reason:chest pain MEASUREMENTS -------- HEIGHT: 170.2 cm WEIGHT: 158.8 kg BP: RVIDd: 3.3 cm (< 3.3) IVSd: 1.4 cm (0.6 - 1.1) LVIDd: 5.5 cm (3.9 - 5.3) LVPWd: 1.2 cm (0.6 - 1.1) IVSs: 1.7 cm LVIDs: 4.4 cm LVPWs: 1.6 cm LA Diam: 3.8 cm (2.7 - 3.8) Ao Diam: 3.3 cm (2.0 - 3.7) MV EXCURSION: 16.918 mm (> 18.000) MV EF SLOPE: 65 mm/s (70 - 150) EPSS: 1.5 cm MV E Mikel: 0.52 m/s MV DecT: 236 ms MV A Mikel: 0.67 m/s MV E/A Ratio: 0.78 RAP: 5.00 mmHg RVSP: 18.36 mmHg FINDINGS -------- Sinus rhythm. This was a technically difficult study with suboptimal views. Morbid Obesity The left ventricular size is normal. There is mild concentric left ventricular hypertrophy. Overa ll left ventricular systolic function is low-normal with, an EF between 50 - 55 %. The right ventricle is normal in size. The left atrial size is normal. The right atrial size is normal. The aortic valve was not well visualized. The mitral valve is normal. Mild mitral regurgitation is present. The tricuspid valve was not well visualized. The pulmonic valve was not well visualized. The aortic root size is normal. Echo free space indicative of a pericardial fat pad. CONCLUSIONS -------- 1. This was a technically difficult study with suboptimal views. 2. Morbid Obesity 3. There is mild concentric left ventricular hypertrophy. 4. Overall left ventricular systolic function is low-normal with, an EF between 50 - 55 %. 5. The left atrial size is normal. 6. The aortic valve was not well visualized. 7. Mild mitral regurgitation is present. 8. The tricuspid valve was not well visualized. INFO PRINT PRESS OPERATOR: Sabrina An RDCS
[2021-09-23] MEDS: metroNIDAZOLE-NS PMX 500 MG in SALINE 1 100ML.BAG IVPB SCH (19:24)
[2021-09-23 20:19] LABS: Hepatitis A Antibody IgM Nonreactive (Nonreactive); Hepatitis B Core IgM Nonreactive (Nonreactive); Hepatitis B Surface Antigen Nonreactive (Nonreactive); Hepatitis C IgG Antibody Nonreactive (Nonreactive)
[2021-09-23 20:45] LABS: Appearance,Urine Clear (Clear); Bilirubin,Urine Negative (Negative); Blood,Urine Negative (Negative); Color,Urine Yellow; Glucose,Urine (UA) Negative (Negative); Ketones,Urine Negative (Negative); Leukocyte Esterase,Urine Negative (Negative); Nitrite,Urine Negative (Negative); Protein,Urine Trace (Negative); Specific Gravity,Urine 1.029 (1.001-1.035); Urobilinogen,Urine <2.0 mg/dL (<2.0)
[2021-09-23 21:18] LABS: Cocaine Screen,Urine Not Detected (NotDetected); Opiate Screen,Urine Detected (NotDetected); Phencyclidine Screen,Urine Not Detected (NotDetected); Urn Cannabinoid Scrn Detected (NotDetected)
[2021-09-23 21:19] LABS: Amphetamine Screen,Urine Not Detected (NotDetected); Barbiturate Screen,Urine Not Detected (NotDetected); Benzodiazepines Screen,Urine Detected (NotDetected); Methadone Screen, Urine Not Detected (NotDetected); Oxycodone Screen, Urine Not Detected (NotDetected); Tricyclic Antidepressant,Urine Not Detected (NotDetected)
[2021-09-24] MEDS: NITROGLYCERIN OINT 1 INCH/GM PACKET TOPICAL SCH ×3 (00:41→12:35)
[2021-09-24] MEDS: metroNIDAZOLE-NS PMX 500 MG in SALINE 1 100ML.BAG IVPB SCH ×3 (02:58→22:02)
[2021-09-24] MEDS: ALBUTEROL NEBULIZED 2.5 MG/3 ML INHALATION PRN ×3 (04:10→12:26)
[2021-09-24] MEDS: ONDANSETRON 4 MG/2 ML VIAL IVP PRN ×2 (05:38→11:06)
[2021-09-24] MEDS: HYDROmorphone 1 MG/ML 1 ML SYRINGE IVP PRN (05:38)
[2021-09-24] MEDS: LEVOTHYROXINE 50 MCG TAB PO SCH (05:38)
[2021-09-24] MEDS ORDERED: HYDROmorphone 0.5 MG/0.5 ML SYRINGE IVP PRN (07:01)
[2021-09-24] MEDS: predniSONE 20 MG TAB PO SCH (07:47)
[2021-09-24] MEDS: CYANOCOBALAMIN 500 MCG TAB PO SCH (07:47)
[2021-09-24] MEDS: TOPIRAMATE 100 MG TAB PO SCH (07:48)
[2021-09-24] MEDS: ASPIRIN 325 MG TAB PO SCH (07:48)
[2021-09-24] MEDS: MAGNESIUM OXIDE 400 MG TAB PO SCH (07:48)
[2021-09-24] MEDS: FAMOTIDINE 20 MG TAB PO SCH (07:48)
[2021-09-24] MEDS: DULoxetine HCL 60 MG CAPSULE.DR PO SCH (07:48)
[2021-09-24] MEDS: ENOXAPARIN 40 MG/0.4 ML SYRINGE SQ SCH (07:49)
[2021-09-24 07:52] VITALS: RESP 18
[2021-09-24 11:08] LABS: Basophils # (A) 0.02 X 10*3/uL (0.00-0.10); Basophils % (A) 0.2 %; Eosinophils # (A) 0.16 X 10*3/uL (0.04-0.35); Eosinophils % (A) 1.2 %; HCT 38.3 % (37.2-46.3); HGB 11.7 g/dL (12.0-15.0); MCH 25.8 pg (27.0-32.0); MCHC 30.5 g/dL (32.0-37.0); MCV 84.5 fL (80.0-97.0); Mean Platelet Volume 10.4 fL (9.5-12.2); Monocytes # (A) 0.83 X 10*3/uL (0.20-1.00); Monocytes % (A) 6.2 %; Neutrophils # (A) 10.62 X 10*3/uL (1.80-7.70); Neutrophils % (A) 79.8 %; Platelet Count 292 X 10*3/uL (140-440); RBC 4.53 X 10*6/uL (4.10-5.20); RDW 17.4 % (11.5-14.5); WBC 13.31 X 10*3/uL (4.50-10.00)
[2021-09-24 11:56] LABS: African American GFR (CKD) 122.1 (60.0-200.0); Albumin 3.4 g/dL (3.8-4.9); Albumin/Globulin Ratio 1.89 (1.60-3.17); Anion Gap 9.6 mmol/L (4.00-12.00); BUN/Creat Ratio 24.57 Ratio (12.00-20.00); Blood Urea Nitrogen 17.2 mg/dL (9.0-27.0); Calcium 8.5 mg/dL (8.7-10.3); Carbon Dioxide 24.4 mmol/L (21.6-31.8); Globulin 1.8 g/dL (1.6-3.3); Non-African American GFR(CKD) 105.4 (60.0-200.0); Potassium 3.5 mmol/L (3.5-5.5); Total Bilirubin 0.3 mg/dL (0.30-1.20); Total Protein 5.2 g/dL (6.2-8.2)
[2021-09-24] MEDS ORDERED: Potassium Replacement Protocol 1 EACH MISC MISCELLANE PRN (13:32)
[2021-09-24] MEDS: POTASSIUM CHLORIDE ER 20 MEQ TAB.ER PO SCH ×2 (13:54→15:25)
--- NOTE | 2021-09-24 15:15 | P.PN ---
Subjective Progress Note Date: 09/24/21 CHIEF COMPLAINT: Right lower quadrant abdominal pain HISTORY OF PRESENT ILLNESS: The patient is a 46-year-old female with at least 2 hospitalizations this week due to atypical chest pain and abdominal pain. She's had multiple diagnostic studies demonstrating no appendicitis. Patient reports having a Mediport placed in 2013 due to poor venous access. Patient had inaccurate weight of 100 pounds difference from 350 pounds. Her weight was rechecked at 466 pounds. Patient's symptoms have improved. All cardiology workup unremarkable for acute myocardial event. REVIEW OF ORGAN SYSTEMS: No fevers or chills. No shortness of breath. PHYSICAL EXAM: VITALS: Reviewed CONSTITUTIONAL: Well developed and in no acute distress. EYES: Conjuctivae without sclera icterus. Extraocular movements grossly intact. HEAD, EARS, NOSE, THROAT: Moist buccal mucosa. Head is atraumatic, normocephalic. Hears conversational speech. No nasal drainage. RESPIRATORY: Non-labored respirations and equal bilateral excursions. No gross wheezes. CARDIOVASCULAR: Regular rate and regular rhythm. ABDOMEN: Protuberant. Tender right lower abdomen. MUSCULOSKELETAL: No clubbing or cyanosis. SKIN: Warm and well perfused with good skin turgor. NEUROLOGIC: Cranial nerves II through XII grossly intact. No focal or lateralizing signs. PSYCH: Alert and oriented to person, place and time. CLINCAL LABS: Reviewed. WBC over 16,000, trending down to over 13,000. Urine analysis demonstrates positive for marijuana, barbiturates, opiates. ASSESSMENT: 1. Right lower quadrant abdominal pain and right flank pain. 2. Super morbid obesity BMI over 70 3. Bipolar disorder PLAN: 1. May continue Flagyl as outpatient due to her multiple drug ALLERGIES and clinical response. 2. Otherwise, no surgical intervention. Objective - Vital Signs Vital signs: Vital Signs Temp 97.5 F L 09/24/21 07:00 Pulse 82 09/24/21 13:45 Resp 18 09/24/21 13:45 BP 148/82 09/24/21 07:00 Pulse Ox 94 L 09/24/21 12:00 Intake & Output 09/23/21 09/24/21 09/24/21 18:59 06:59 18:59 Intake Total 1100 Balance 1100 Intake: Oral 1100 Other: Voiding Method Toilet Toilet Toilet # Voids 3 2 3 # Bowel Movements 1 2 - Labs CBC & Chem 7: 09/24/21 08:00 09/24/21 08:00 Labs: Abnormal Lab Results - Last 24 Hours (Table) 09/23/21 09/24/21 09/24/21 Range/Units Unknown 08:00 08:00 WBC 13.31 H (4.50-10.00) X 10*3/uL Hgb 11.7 L (12.0-15.0) g/dL MCH 25.8 L (27.0-32.0) pg MCHC 30.5 L (32.0-37.0) g/dL RDW 17.4 H (11.5-14.5) % Immature Gran # 0.08 H (0.00-0.04) X 10*3/uL Neutrophils # 10.62 H (1.80-7.70) X 10*3/uL BUN/Creatinine Ratio 24.57 H (12.00-20.00) Ratio Calcium 8.5 L (8.7-10.3) mg/dL ALT 52 H (8-44) U/L Total Protein 5.2 L (6.2-8.2) g/dL Albumin 3.4 L (3.8-4.9) g/dL Urine Protein Trace H (Negative) Urine Opiates Screen Detected H (NotDetected) U Benzodiazepines Scrn Detected H (NotDetected) U Marijuana (THC) Screen Detected H (NotDetected) Assessment and Plan (1) Right lower quadrant abdominal pain Current Visit: Yes Status: Acute Code(s): R10.31 - RIGHT LOWER QUADRANT PAIN SNOMED Code(s): 826244436 (2) Morbid obesity with BMI of 70 and over, adult Current Visit: Yes Status: Acute Code(s): E66.01 - MORBID (SEVERE) OBESITY DUE TO EXCESS CALORIES; Z68.45 - BODY MASS INDEX [BMI] 70 OR GREATER, ADULT SNOMED Code(s): 829382171 (3) Bipolar disease, chronic Current Visit: Yes Status: Acute Code(s): F31.9 - BIPOLAR DISORDER, UNSPECI FIED SNOMED Code(s): 36204331 (4) Right flank pain Current Visit: Yes Status: Acute Code(s): R10.9 - UNSPECIFIED ABDOMINAL PAIN SNOMED Code(s): 826032212 (5) Atypical chest pain Current Visit: Yes Status: Acute Code(s): R07.89 - OTHER CHEST PAIN SNOMED Code(s): 272060166
[2021-09-24] MEDS: HYDROcodone/APAP 5-325MG 1 EACH TAB PO PRN (15:24)
[2021-09-24 20:34] VITALS: BP 123/73; PULSE 72; TEMP 98.7
--- NOTE | 2021-09-24 23:28 | P.DS ---
Providers Date of admission: 09/22/21 12:22 Attending physician: Dakota Garay Consults: 09/22/21 12:22 Consult Physician Urgent Consulting Provider: [facility] Consult Reason/Comments: Unstable angina Do you want consulting provider notified?: Yes 09/22/21 12:54 Consult Physician Routine Consulting Provider: Deirdre Pittman Consult Reason/Comments: Lower abdominal pain etiology not clear Do you want consulting provider notified?: Yes Primary care physician: Lb Herrera Hospital Course: Final diagnoses -Chest pain atypical, ACS ruled out, EF 50-55% Patient is reproducible and patient states the pain is worse with inspiration and expiration most likely related to her chronic cough. -Abdominal pain etiology is not clear, surgical consultation -Probable tracheobronchitis -History of asthmatic bronchitis patient, patient presents with a congested cough, could be a possible exacerbation. We will treat with steroids. -fibromyalgia -Hyperkalemia secondary to hemolysis, repeat 3.8 -Hypothyroidism -Depression -Mild elevated liver enzymes and repeat them again probability of nonalcoholic steatohepatitis -Leukocytosis without any evidence of superinfection at this time CT of the abdomen negative -morbid obesity BMI greater than 70. Discharge status Patient is discharged home in a stable condition to complete a course of oral steroids. She'll also complete a course of oral Flagyl. There was no evidence for appendicitis from surgical standpoint, patient is status post cholecystectomy. With history of IBS and RLQ abdominal pain we will treat for possible colitis. Hospital course This is a 42 for a few who came to the ER with pressure like chest pain that was non raditating. She was recently admitted [facility] she was evaluated by cardiology and told that she may need an outpatient stress test echocardiogram. Echocardiogram this admission shows an EF of 50-55%. With a pericardial fat pad. Patient is also complaining of some right lower quadrant abdominal pain that was severe crampy as well as sharp and nonradiating. She states that she is nauseous but denies any vomiting. She does report some loose stools. She denies any blood in the stool. Abdomen is soft. There is some leukocytosis at 16 however there is no fever. Abdominal CT with contrast shows hepatomegaly, no evidence for bowel obstruction. Status post cholecystectomy. Indeterminate hypodense lesions within the left kidney measuring up to 2.3 cm cysts are suspected. Consider six-month follow-up with CT to confirm stability. This is a very limited exam. Surgery evaluated the patient who recommended a urinalysis for possibility of kidney stones. Urinalysis was not unremarkable there was trace protein. A urine drug screen showed opiates, benzodiazepines and marijuana. Patient does admit edibles. She is prescribed Xanax for home use. Addition we did give patient a [place] for pain and what correlate for the opiate. Patient was started on IV Flagyl. She does report improvement in her abdominal pain. She is still complaining of a congested cough with brown to green sputum. Her chest pain is reproducible and is worse with deep inspiration. She has a history of asthmatic bronchitis since she was a child. She states that she develops bronchitis around this time yearly. She will finish a steroid burst and then taper. Cardiology cleared the patient with no further cardiac work up needed. Surgical cleared the patient for discharge on oral flagyl. Labs this admission include a WBC of 13.31 on discharge, 16.44 on admission. Troponins were negative x 2, ALT mildy eleavted at 60. Triglycerides elevated at 227, LDL 45, total cholesterol 171, HDL 48. Patient has remained afebrile, blood pressure 123/73. 09/24/21 Patient today still reports some RLQ abdominal pain, but states that it is improving. She also feels like breathing has been better since the addition of steroids. Her lungs are clear to auscultation, she does have a productive cough. Abdomen is soft, nontender, morbidly obese. Lungs are clear to auscultation. WBC is improved today at 13.3. Patient is discharged home with flagyl, prednisone and will follow up with her PCP, and labs in 2-3 days. Please see medication reconciliation for a list of current medications. Thank you for allowing us to participate in the care of this patient. Patient Condition at Discharge: Good Plan - Discharge Summary Discharge Rx Participant: No New Discharge Prescriptions: New HYDROcodone/APAP 5-325MG [[place] 5-325] 1 each PO Q6HR PRN #6 tab PRN Reason: Pain Famotidine [Pepcid] 20 mg PO BID #60 tab guaiFENesin SYRUP 100MG/5ML [Robitussin] 200 mg PO Q6HR PRN #0 ml PRN Reason: Cough Benzocaine/Menthol Lozeng [Cepacol lozenge] 1 each MUCOUS MEM Q4HR PRN lozenge PRN Reason: Cough predniSONE [Deltasone] 40 mg PO DAILY 4 Days #4 tab Continue Multivitamins, Thera [Multivitamin (formulary)] 1 tab PO DAILY Furosemide [Lasix] 40 mg PO DAILY PRN PRN Reason: LEG SWELLING Dicyclomine [Bentyl] 20 mg PO TID Albuterol Nebulized [Ventolin Nebulized] 2.5 mg INHALATION RT-Q4H PRN PRN Reason: Shortness Of Breath DULoxetine HCL [Cymbalta] 60 mg PO DAILY Potassium Chloride [K-Tab ER] 20 meq PO BID Magnesium Oxide 400 mg PO DAILY Lidocaine 5% Patch [Lidoderm 5% Patch] 1 patch TRANSDERM DAILY Levothyroxine Sodium [Synthroid] 50 mcg PO DAILY Topiramate [Topamax] 200 mg PO BID Cyanocobalamin (Vitamin B-12) [Vitamin B-12] 1,000 mcg PO DAILY Ondansetron [Zofran] 4 mg PO Q6H PRN PRN Reason: Nausea Discharge Medication List Albuterol Nebulized [Ventolin Nebulized] 2.5 mg INHALATION RT-Q4H PRN 09/22/21 [History] Cyanocobalamin (Vitamin B-12) [Vitamin B-12] 1,000 mcg PO DAILY 09/22/21 [History] DULoxetine HCL [Cymbalta] 60 mg PO DAILY 09/22/21 [History] Dicyclomine [Bentyl] 20 mg PO TID 09/22/21 [History] Furosemide [Lasix] 40 mg PO DAILY PRN 09/22/21 [History] Levothyroxine Sodium [Synthroid] 50 mcg PO DAILY 09/22/21 [History] Lidocaine 5% Patch [Lidoderm 5% Patch] 1 patch TRANSDERM DAILY 09/22/21 [History] Magnesium Oxide 400 mg PO DAILY 09/22/21 [History] Multivitamins, Thera [Multivitamin (formulary)] 1 tab PO DAILY 09/22/21 [History] Ondansetron [Zofran] 4 mg PO Q6H PRN 09/22/21 [History] Potassium Chloride [K-Tab ER] 20 meq PO BID 09/22/21 [History] Topiramate [Topamax] 200 mg PO BID 09/22/21 [History] Benzocaine/Menthol Lozeng [Cepacol lozenge] 1 each MUCOUS MEM Q4HR PRN lozenge 09/24/21 [Rx] Famotidine [Pepcid] 20 mg PO BID #60 tab 09/24/21 [Rx] HYDROcodone/APAP 5-325MG [[place] 5-325] 1 each PO Q6HR PRN #6 tab 09/24/21 [Rx] guaiFENesin SYRUP 100MG/5ML [Robitussin] 200 mg PO Q6HR PRN #0 ml 09/24/21 [Rx] predniSONE [Deltasone] 40 mg PO DAILY 4 Days #4 tab 09/24/21 [Rx] Follow up Appointment(s)/Referral(s): Lb Herrera MD [Primary Care Provider] - 1-2 days Deirdre Pittman MD [STAFF PHYSICIAN] - 1 Week Ambulatory/Diagnostic Orders: Basic Metabolic Panel [LAB.AMB] Time Frame: 2 Days, Location: None Selected Complete Blood Count w/diff [LAB.AMB] Time Frame: 2 Days, Location: None Selected Patient Instructions/Handouts: Bipolar Disorder (GEN), Acute Coronary Syndrome (GEN), Weight Management (GEN), Acute Abdominal Pain (GEN) Activity/Diet/Wound Care/Special Instructions: Recommended CT follow-up for possible left renal cyst in 6 months Discharge Disposition: HOME SELF-CARE
== END 2021-09-24 23:10 | disposition home or self-care (01) ==
LOC: EC 08:48 → 6NMEDSUR 12:22
PROVIDERS: ADMIT Family Medicine; ATTEND Family Medicine
DX: R07.89 Other chest pain (principal); R10.31 Right lower quadrant pain; E87.5 Hyperkalemia; J45.909 Unspecified asthma, uncomplicated; K58.0 Irritable bowel syndrome with diarrhea; I34.0 Nonrheumatic mitral (valve) insufficiency; M79.7 Fibromyalgia; M19.90 Unspecified osteoarthritis, unspecified site; D72.829 Elevated white blood cell count, unspecified; E03.9 Hypothyroidism, unspecified; K76.0 Fatty (change of) liver, not elsewhere classified; N28.9 Disorder of kidney and ureter, unspecified; F17.200 Nicotine dependence, unspecified, uncomplicated; N88.8 Other specified noninflammatory disorders of cervix uteri; J98.6 Disorders of diaphragm; G89.29 Other chronic pain; M51.37 Other intervertebral disc degeneration, lumbosacral region; M47.816 Spondylosis without myelopathy or radiculopathy, lumbar region; M47.814 Spondylosis without myelopathy or radiculopathy, thoracic region; E66.01 Morbid (severe) obesity due to excess calories; Z68.45 Body mass index [BMI] 70 or greater, adult; F31.9 Bipolar disorder, unspecified; F43.10 Post-traumatic stress disorder, unspecified; Z20.822 Contact with and (suspected) exposure to COVID-19; Z79.890 Hormone replacement therapy; Z79.899 Other long term (current) drug therapy; Z88.6 Allergy status to analgesic agent; Z88.1 Allergy status to other antibiotic agents; Z88.5 Allergy status to narcotic agent; Z88.0 Allergy status to penicillin; Z88.8 Allergy status to other drugs, medicaments and biological substances; Z91.048 Other nonmedicinal substance allergy status; Z98.51 Tubal ligation status; Z95.828 Presence of other vascular implants and grafts; Z90.49 Acquired absence of other specified parts of digestive tract; Z87.442 Personal history of urinary calculi; Z87.42 Personal history of other diseases of the female genital tract; Z86.16 Personal history of COVID-19; Z87.19 Personal history of other diseases of the digestive system; Z98.890 Other specified postprocedural states
CPT/HCPCS: 96376 ×3; 96365; 96366 ×2; 96372 ×2; 96375; 99285; 36415; 94640 ×5; 94760 ×2; 93005; 93306; 80061; 80053 ×3; 80074; 83735; 84484; 85025 ×2; 85027; 85610; 85730; 81003; 80306; 87635; 71046; 74177; G0378 ×3; J2405 ×3; J1650 ×2; J1170 ×5; J7512 ×2; Q9967

== ENCOUNTER 2021-09-25 23:25 | Emergency (ER) | payer OTHER ==
[2021-09-25] MEDS ORDERED: SODIUM CHLORIDE 0.9% 1,000 ML IV STA (23:39)
[2021-09-25] MEDS ORDERED: IPRATROPIUM-ALBUTEROL 3 ML NEB INHALATION STA (23:39)
[2021-09-25 23:43] VITALS: TEMP 98.3
--- NOTE | 2021-09-25 23:58 | ED ---
SOB HPI - General Chief Complaint: Shortness of Breath Stated Complaint: Shortness of Breath Time Seen by Provider: 09/25/21 23:38 Source: patient, EMS, RN notes reviewed, old records reviewed Mode of arrival: EMS Limitations: physical limitation - History of Present Illness Initial Comments: This is a 46-year-old female the majority. Patient presents today for evaluation of chest pain evaluation discharge earlier today. Patient also complaining of shortness of breath. Patient states she does not feel well for a few days. Patient also states she has some dizziness was recently diagnosed with asthmatic bronchitis. Otherwise no fevers no other complaints MD Complaint: shortness of breath, cough -: days(s) Severity: mild Severity scale (1-10): 2 Consistency: intermittent Improves With: nothing Worsens With: nothing Known History Of: asthma Context: recent URI Associated Symptoms: chest pain, cough, sputum production Treatments Prior to Arrival: none - Related Data Home Medications Medication Instructions Recorded Confirmed Albuterol Nebulized [Ventolin 2.5 mg INHALATION RT-Q4H PRN 09/22/21 09/22/21 Nebulized] Cyanocobalamin (Vitamin B-12) 1,000 mcg PO DAILY 09/22/21 09/22/21 [Vitamin B-12] DULoxetine HCL [Cymbalta] 60 mg PO DAILY 09/22/21 09/22/21 Dicyclomine [Bentyl] 20 mg PO TID 09/22/21 09/22/21 Furosemide [Lasix] 40 mg PO DAILY PRN 09/22/21 09/22/21 Levothyroxine Sodium [Synthroid] 50 mcg PO DAILY 09/22/21 09/22/21 Lidocaine 5% Patch [Lidoderm 5% 1 patch TRANSDERM DAILY 09/22/21 09/22/21 Patch] Magnesium Oxide 400 mg PO DAILY 09/22/21 09/22/21 Multivitamins, Thera [Multivitamin 1 tab PO DAILY 09/22/21 09/22/21 (formulary)] Ondansetron [Zofran] 4 mg PO Q6H PRN 09/22/21 09/22/21 Potassium Chloride [K-Tab ER] 20 meq PO BID 09/22/21 09/22/21 Topiramate [Topamax] 200 mg PO BID 09/22/21 09/22/21 Previous Rx's Medication Instructions Recorded Benzocaine/Menthol Lozeng [Cepacol 1 each MUCOUS MEM Q4HR PRN lozenge 09/24/21 lozenge] Famotidine [Pepcid] 20 mg PO BID #60 tab 09/24/21 HYDROcodone/APAP 5-325MG [[place] 1 each PO Q6HR PRN #6 tab 09/24/21 5-325] guaiFENesin SYRUP 100MG/5ML 200 mg PO Q6HR PRN #0 ml 09/24/21 [Robitussin] methylPREDNISolone Dose Pack See Taper PO DIRECTED #21 tab 09/24/21 [Medrol Dose Pack] metroNIDAZOLE [Flagyl] 500 mg PO Q8HR 10 Days #30 tab 09/24/21 predniSONE [Deltasone] 40 mg PO DAILY 4 Days #4 tab 09/24/21 Allergies Allergy/AdvReac Type Severity Reaction Status Date / Time adhesive tape Allergy Rash/Hives Verified 09/25/21 23:44 amoxicillin Allergy Anaphylaxis Verified 09/25/21 23:44 cefuroxime [From Ceftin] Allergy Anaphylaxis Verified 09/25/21 23:44 cephalexin [From Keflex] Allergy Anaphylaxis Verified 09/25/21 23:44 fluphenazine [From Prolixin] Allergy Anaphylaxis Verified 09/25/21 23:44 gabapentin [From Neurontin] Allergy Anaphylaxis Verified 09/25/21 23:44 haloperidol [From Haldol] Allergy Anaphylaxis Verified 09/25/21 23:44 ketorolac [From Toradol] Allergy Anaphylaxis Verified 09/25/21 23:44 methylphenidate Allergy Anaphylaxis Verified 09/25/21 23:44 [From Ritalin] NSAIDS (Non-Steroidal Allergy Anaphylaxis Verified 09/25/21 23:44 Anti-Inflamma Review of Systems ROS Statement: Those systems with pertinent positive or pertinent negative responses have been documented in the HPI. ROS Other: All systems not noted in ROS Statement are negative. Past Medical History Past Medical History: Asthma, Fibromyalgia, Musculoskeletal Disorder, Osteoarthritis (OA) Additional Past Medical History / Comment(s): IBS, Colitis, History of Any Multi-Drug Resistant Organisms: None Reported Past Surgical History: Cholecystectomy, Tubal Ligation Additional Past Surgical History / Comment(s): CHoly 2002 Past Psychological History: Anxiety, Bipolar, Depression, PTSD Smoking Status: Never smoker Past Alcohol Use History: None Reported Past Drug Use History: Marijuana General Exam Limitations: physical limitation General appearance: alert, in no apparent distress Head exam: Present: atraumatic, normocephalic, normal inspection Eye exam: Present: normal appearance, PERRL, EOMI. Absent: scleral icterus, conjunctival injection, periorbital swelling ENT exam: Present: normal exam, mucous membranes moist Neck exam: Present: normal inspection. Absent: tenderness, meningismus, lymphadenopathy Respiratory exam: Present: normal lung sounds bilaterally. Absent: respiratory distress, wheezes, rales, rhonchi, stridor Cardiovascular Exam: Present: regular rate, normal rhythm, normal heart sounds. Absent: systolic murmur, diastolic murmur, rubs, gallop, clicks GI/Abdominal exam: Present: soft, normal bowel sounds. Absent: distended, tenderness, guarding, rebound, rigid Extremities exam: Present: normal inspection, full ROM, normal capillary refill. Absent: tenderness, pedal edema, joint swelling, calf tenderness Back exam: Present: normal inspection Neurological exam: Present: alert, oriented X3, CN II-XII intact Psychiatric exam: Present: normal affect, normal mood Skin exam: Present: warm, dry, intact, normal color. Absent: rash Course Vital Signs 09/25/21 09/25/21 09/26/21 23:34 23:55 00:55 Temperature 98.3 F Pulse Rate 85 74 Respiratory 22 20 18 Rate Blood Pressure 144/86 139/94 O2 Sat by Pulse 96 94 L Oximetry - Reevaluation(s) Reevaluation #1: 09/26/21 01:51 Medical record is reviewed Reevaluation #2: 09/26/21 01:51 Patient is in no acute distress Reevaluation #3: 09/26/21 01:51 Patient informed results questions answered Medical Decision Making - Medical Decision Making 46 female for chest pain shortness of breath. No acute findings here in the emergency room. Patient can be discharged home - Lab Data Result diagrams: 09/26/21 00:33 09/26/21 00:41 Lab Results 09/26/21 09/26/21 09/26/21 Range/Units 00:33 00:41 00:41 WBC 11.5 H (3.8-10.6) k/uL RBC 5.03 (3.80-5.40) m/uL Hgb 13.6 (11.4-16.0) gm/dL Hct 41.9 (34.0-46.0) % MCV 83.3 (80.0-100.0) fL MCH 26.9 (25.0-35.0) pg MCHC 32.3 (31.0-37.0) g/dL RDW 16.7 H (11.5-15.5) % Plt Count 330 (150-450) k/uL MPV 7.5 Neutrophils % 69 % Lymphocytes % 21 % Monocytes % 6 % Eosinophils % 3 % Basophils % 0 % Neutrophils # 7.9 H (1.3-7.7) k/uL Lymphocytes # 2.4 (1.0-4.8) k/uL Monocytes # 0.7 (0-1.0) k/uL Eosinophils # 0.3 (0-0.7) k/uL Basophils # 0.0 (0-0.2) k/uL Anisocytosis Slight PT 10.5 (9.0-12.0) sec INR 1.0 (<1.2) APTT 22.5 (22.0-30.0) sec D-Dimer 0.44 (<0.60) mg/L FEU Sodium 134 L (137-145) mmol/L Potassium 3.6 (3.5-5.1) mmol/L Chloride 105 (98-107) mmol/L Carbon Dioxide 23 (22-30) mmol/L Anion Gap 6 mmol/L BUN 10 (7-17) mg/dL Creatinine 0.74 (0.52-1.04) mg/dL Est GFR (CKD-EPI)AfAm >90 (>60 ml/min/1.73 sqM) Est GFR (CKD-EPI)NonAf >90 (>60 ml/min/1.73 sqM) Glucose 94 (74-99) mg/dL Plasma Lactic Acid Cy (0.7-2.0) mmol/L Calcium 8.7 (8.4-10.2) mg/dL Total Bilirubin 0.4 (0.2-1.3) mg/dL AST 23 (14-36) U/L ALT 41 H (4-34) U/L Alkaline Phosphatase 105 (38-126) U/L NT-Pro-B Natriuret Pep pg/mL Total Protein 5.6 L (6.3-8.2) g/dL Albumin 3.1 L (3.5-5.0) g/dL 09/26/21 09/26/21 Range/Units 00:41 00:41 WBC (3.8-10.6) k/uL RBC (3.80-5.40) m/uL Hgb (11.4-16.0) gm/dL Hct (34.0-46.0) % MCV (80.0-100.0) fL MCH (25.0-35.0) pg MCHC (31.0-37.0) g/dL RDW (11.5-15.5) % Plt Count (150-450) k/uL MPV Neutrophils % % Lymphocytes % % Monocytes % % Eosinophils % % Basophils % % Neutrophils # (1.3-7.7) k/uL Lymphocytes # (1.0-4.8) k/uL Monocytes # (0-1.0) k/uL Eosinophils # (0-0.7) k/uL Basophils # (0-0.2) k/uL Anisocytosis PT (9.0-12.0) sec INR (<1.2) APTT (22.0-30.0) sec D-Dimer (<0.60) mg/L FEU Sodium (137-145) mmol/L Potassium (3.5-5.1) mmol/L Chloride (98-107) mmol/L Carbon Dioxide (22-30) mmol/L Anion Gap mmol/L BUN (7-17) mg/dL Creatinine (0.52-1.04) mg/dL Est GFR (CKD-EPI)AfAm (>60 ml/min/1.73 sqM) Est GFR (CKD-EPI)NonAf (>60 ml/min/1.73 sqM) Glucose (74-99) mg/dL Plasma Lactic Acid Cy 0.8 (0.7-2.0) mmol/L Calcium (8.4-10.2) mg/dL Total Bilirubin (0.2-1.3) mg/dL AST (14-36) U/L ALT (4-34) U/L Alkaline Phosphatase (38-126) U/L NT-Pro-B Natriuret Pep 333 pg/mL Total Protein (6.3-8.2) g/dL Albumin (3.5-5.0) g/dL - EKG Data -: EKG Interpreted by Me (EKG is sinus rhythm 83, 164 QRS 492 QTC 423) - Radiology Data Radiology results: report reviewed (Chest x-rays negative for acute disease), image reviewed Disposition Clinical Impression: Morbid obesity with BMI of 70 and over, adult, Atypical chest pain, Bronchitis Disposition: HOME SELF-CARE Condition: Good Instructions (If sedation given, give patient instructions): Chronic Bronchitis (ED) Is patient prescribed a controlled substance at d/c from ED?: No Referrals: Lb Herrera MD [Primary Care Provider] - 1-2 days
[2021-09-26] MEDS ORDERED: HYDROmorphone 1 MG/ML 1 ML SYRINGE IVP STA (00:17)
[2021-09-26 00:56] VITALS: RESP 18
[2021-09-26 00:58] LABS: Anisocytosis Slight; Basophils % (A) 0 %; Eosinophils # (A) 0.3 k/uL (0-0.7); Eosinophils % (A) 3 %; HCT 41.9 % (34.0-46.0); HGB 13.6 gm/dL (11.4-16.0); Lymphocytes # (A) 2.4 k/uL (1.0-4.8); Lymphocytes % (A) 21 %; MCH 26.9 pg (25.0-35.0); MCHC 32.3 g/dL (31.0-37.0); MCV 83.3 fL (80.0-100.0); Mean Platelet Volume 7.5; Monocytes # (A) 0.7 k/uL (0-1.0); Monocytes % (A) 6 %; Neutrophils # (A) 7.9 k/uL (1.3-7.7); Neutrophils % (A) 69 %; Platelet Count 330 k/uL (150-450); RBC 5.03 m/uL (3.80-5.40); RDW 16.7 % (11.5-15.5); WBC 11.5 k/uL (3.8-10.6)
[2021-09-26 01:12] LABS: Partial Thromboplastin Time 22.5 sec (22.0-30.0); Prothrombin Time 10.5 sec (9.0-12.0)
--- NOTE | 2021-09-26 01:17 | XR ---
EXAMINATION TYPE: XR chest 2V DATE OF EXAM: 09/26/2021 COMPARISON: 09/22/2021 HISTORY: Short of breath TECHNIQUE: 2 views FINDINGS: Heart and mediastinum are normal. Lungs are clear. Diaphragm is normal. Bony thorax is inta ct. Pulmonary vascularity is normal. There is right central venous catheter with tip in the superior vena cava. IMPRESSION: No active cardiopulmonary disease. Normal heart. No change.
[2021-09-26 01:18] LABS: ALT 41 U/L (4-34); AST 23 U/L (14-36); African American GFR (CKD) >90 (>60 ml/min/1.73 sqM); Albumin 3.1 g/dL (3.5-5.0); Alkaline Phosphatase 105 U/L (38-126); Anion Gap 6 mmol/L; Blood Urea Nitrogen 10 mg/dL (7-17); Calcium 8.7 mg/dL (8.4-10.2); Carbon Dioxide 23 mmol/L (22-30); Chloride 105 mmol/L (98-107); Glucose 94 mg/dL (74-99); Non-African American GFR(CKD) >90 (>60 ml/min/1.73 sqM); Potassium 3.6 mmol/L (3.5-5.1); Sodium 134 mmol/L (137-145); Total Bilirubin 0.4 mg/dL (0.2-1.3); Total Protein 5.6 g/dL (6.3-8.2)
[2021-09-26] MEDS ORDERED: ALBUTEROL HFA INHALER INHALATION STA (02:12)
[2021-09-26 02:48] VITALS: BP 122/74; PULSE 77
== END 2021-09-26 03:03 | disposition home or self-care (01) ==
LOC: EC 23:25
DX: R07.89 Other chest pain (principal); E66.01 Morbid (severe) obesity due to excess calories; J40 Bronchitis, not specified as acute or chronic; M19.90 Unspecified osteoarthritis, unspecified site; F41.9 Anxiety disorder, unspecified; F31.9 Bipolar disorder, unspecified; F43.10 Post-traumatic stress disorder, unspecified; F12.90 Cannabis use, unspecified, uncomplicated; Z79.899 Other long term (current) drug therapy
CPT/HCPCS: 36415; 94640; 93005; 85379; 83880; 80053; 83605; 84484; 85025; 85610; 85730; 71046; 99285; 96374; 96375; 96361 ×2; J1642; J1170; J1790

== ENCOUNTER 2021-10-21 18:45 | Emergency (ER) | payer OTHER ==
[2021-10-21 19:19] VITALS: TEMP 98.6
[2021-10-21] MEDS ORDERED: MORPHINE SULFATE 4 MG/ML SYRINGE IV STA (19:26)
[2021-10-21] MEDS ORDERED: ONDANSETRON 4 MG/2 ML VIAL IVP STA (19:26)
[2021-10-21] MEDS ORDERED: LORazepam 2 MG/ML INJ IV STA (20:09)
--- NOTE | 2021-10-21 20:10 | ED ---
General Adult HPI - General Chief complaint: Chest Pain Stated complaint: Chest Pain Time Seen by Provider: 10/21/21 19:05 Source: patient Mode of arrival: EMS Limitations: no limitations - History of Present Illness Initial comments: 46 year-old female patient presents for evaluation of chest pain for the last 1.5-2 hours. States it is substernal radiates to her back. States that she does have some shortness of breath with this. States she was mentally upset when the symptoms started. She currently lives with her daughter and is concerned that she is going to be asked to leave her home soon. She is requesting help with obtaining new housing. She also reports some depression with history of bipolar. Wants to be admitted to the hospital and have a psychiatric consultation. She just moved back to the area from [place]. She did recently have her medications adjusted by Dr. Herrera. She denies nausea, vomiting, or sweats with her symptoms. Denies any dizziness. - Related Data Home Medications Medication Instructions Recorded Confirmed Albuterol Nebulized [Ventolin 2.5 mg INHALATION RT-Q4H PRN 09/22/21 09/22/21 Nebulized] Cyanocobalamin (Vitamin B-12) 1,000 mcg PO DAILY 09/22/21 09/22/21 [Vitamin B-12] DULoxetine HCL [Cymbalta] 60 mg PO DAILY 09/22/21 09/22/21 Dicyclomine [Bentyl] 20 mg PO TID 09/22/21 09/22/21 Furosemide [Lasix] 40 mg PO DAILY PRN 09/22/21 09/22/21 Levothyroxine Sodium [Synthroid] 50 mcg PO DAILY 09/22/21 09/22/21 Lidocaine 5% Patch [Lidoderm 5% 1 patch TRANSDERM DAILY 09/22/21 09/22/21 Patch] Magnesium Oxide 400 mg PO DAILY 09/22/21 09/22/21 Multivitamins, Thera [Multivitamin 1 tab PO DAILY 09/22/21 09/22/21 (formulary)] Ondansetron [Zofran] 4 mg PO Q6H PRN 09/22/21 09/22/21 Potassium Chloride [K-Tab ER] 20 meq PO BID 09/22/21 09/22/21 Topiramate [Topamax] 200 mg PO BID 09/22/21 09/22/21 Previous Rx's Medication Instructions Recorded Benzocaine/Menthol Lozeng [Cepacol 1 each MUCOUS MEM Q4HR PRN lozenge 09/24/21 lozenge] Famotidine [Pepcid] 20 mg PO BID #60 tab 09/24/21 HYDROcodone/APAP 5-325MG [[place] 1 each PO Q6HR PRN #6 tab 09/24/21 5-325] guaiFENesin SYRUP 100MG/5ML 200 mg PO Q6HR PRN #0 ml 09/24/21 [Robitussin] methylPREDNISolone Dose Pack See Taper PO DIRECTED #21 tab 09/24/21 [Medrol Dose Pack] metroNIDAZOLE [Flagyl] 500 mg PO Q8HR 10 Days #30 tab 09/24/21 predniSONE [Deltasone] 40 mg PO DAILY 4 Days #4 tab 09/24/21 Allergies Allergy/AdvReac Type Severity Reaction Status Date / Time adhesive tape Allergy Rash/Hives Verified 09/25/21 23:44 amoxicillin Allergy Anaphylaxis Verified 09/25/21 23:44 cefuroxime [From Ceftin] Allergy Anaphylaxis Verified 09/25/21 23:44 cephalexin [From Keflex] Allergy Anaphylaxis Verified 09/25/21 23:44 fluphenazine [From Prolixin] Allergy Anaphylaxis Verified 09/25/21 23:44 gabapentin [From Neurontin] Allergy Anaphylaxis Verified 09/25/21 23:44 haloperidol [From Haldol] Allergy Anaphylaxis Verified 09/25/21 23:44 ketorolac [From Toradol] Allergy Anaphylaxis Verified 09/25/21 23:44 methylphenidate Allergy Anaphylaxis Verified 09/25/21 23:44 [From Ritalin] NSAIDS (Non-Steroidal Allergy Anaphylaxis Verified 09/25/21 23:44 Anti-Inflamma Review of Systems ROS Statement: Those systems with pertinent positive or pertinent negative responses have been documented in the HPI. ROS Other: All systems not noted in ROS Statement are negative. Past Medical History Past Medical History: Asthma, Fibromyalgia, Musculoskeletal Disorder, Osteoarthritis (OA) Additional Past Medical History / Comment(s): IBS, Colitis, History of Any Multi-Drug Resistant Organisms: None Reported Past Surgical History: Cholecystectomy, Tubal Ligation Additional Past Surgical History / Comment(s): CHoly 2002 Past Psychological History: Anxiety, Bipolar, Depression, PTSD Smoking Status: Never smoker Past Alcohol Use History: None Reported Past Drug Use History: Marijuana General Exam Limitations: no limitations General appearance: alert, in no apparent distress, obese ENT exam: Present: normal exam, normal oropharynx, mucous membranes moist Respiratory exam: Present: normal lung sounds bilaterally. Absent: respiratory distress, wheezes, rales, rhonchi, stridor Cardiovascular Exam: Present: regular rate, normal rhythm, normal heart sounds. Absent: systolic murmur, diastolic murmur, rubs, gallop, clicks GI/Abdominal exam: Present: soft, normal bowel sounds. Absent: distended, tenderness, guarding, rebound, rigid Neurological exam: Present: alert, oriented X3, CN II-XII intact Psychiatric exam: Present: normal affect, normal mood Skin exam: Present: warm, dry, intact, normal color. Absent: rash Course Vital Signs 10/21/21 10/21/21 10/22/21 19:11 20:15 01:23 Temperature 98.6 F Pulse Rate 111 H 104 H Pulse Rate [ 110 H [employer] ] Respiratory 16 18 Rate Blood Pressure 116/84 118/69 O2 Sat by Pulse 97 95 Oximetry EKG Findings - EKG Comments: EKG Findings:: EKG obtained at 2018 shows sinus tachycardia with a ventricular rate of 110, PA interval 192, QR jew 90, QT 334, QTC 452. No evidence of ST elevation or depression Medical Decision Making - Medical Decision Making 46 year-old female patient presented for multiple complaints. She reported chest pain, knee pain, and increased anxiety/depression. Physical exam was unremarkable. Labs were reviewed. Initially troponin negative and other labs were unremarkable. Did add d-dimer which came back elevated at 0.7. She was sent for CT chest angio which was negative for PE. She was seen and evaluated by EPS, safety plan was developed. She will be discharged to follow up with her primary care physician and outpatient mental health services. Return parameters are discussed in detail. She verbalizes understanding and agrees with this plan. Case discussed with my attending Dr. Taylor. - Lab Data Result diagrams: 10/21/21 20:25 10/21/21 20:25 Lab Results 10/21/21 10/21/21 10/21/21 Range/Units 20:25 20:25 20:25 WBC 10.1 (3.8-10.6) k/uL RBC 5.15 (3.80-5.40) m/uL Hgb 13.8 (11.4-16.0) gm/dL Hct 42.0 (34.0-46.0) % MCV 81.5 (80.0-100.0) fL MCH 26.8 (25.0-35.0) pg MCHC 32.9 (31.0-37.0) g/dL RDW 15.2 (11.5-15.5) % Plt Count 292 (150-450) k/uL MPV 7.6 Neutrophils % 73 % Lymphocytes % 19 % Monocytes % 5 % Eosinophils % 1 % Basophils % 1 % Neutrophils # 7.4 (1.3-7.7) k/uL Lymphocytes # 1.9 (1.0-4.8) k/uL Monocytes # 0.5 (0-1.0) k/uL Eosinophils # 0.1 (0-0.7) k/uL Basophils # 0.1 (0-0.2) k/uL PT 10.9 (9.0-12.0) sec INR 1.0 (<1.2) APTT 23.1 (22.0-30.0) sec D-Dimer (<0.60) mg/L FEU Sodium 136 L (137-145) mmol/L Potassium 3.5 (3.5-5.1) mmol/L Chloride 107 (98-107) mmol/L Carbon Dioxide 20 L (22-30) mmol/L Anion Gap 9 mmol/L BUN 5 L (7-17) mg/dL Creatinine 0.89 (0.52-1.04) mg/dL Est GFR (CKD-EPI)AfAm >90 (>60 ml/min/1.73 sqM) Est GFR (CKD-EPI)NonAf 79 (>60 ml/min/1.73 sqM) Glucose 123 H (74-99) mg/dL Calcium 8.9 (8.4-10.2) mg/dL Magnesium 1.9 (1.6-2.3) mg/dL Total Bilirubin 0.3 (0.2-1.3) mg/dL AST 25 (14-36) U/L ALT 19 (4-34) U/L Alkaline Phosphatase 93 (38-126) U/L Troponin I (0.000-0.034) ng/mL Total Protein 6.0 L (6.3-8.2) g/dL Albumin 3.4 L (3.5-5.0) g/dL Lipase 38 (23-300) U/L 10/21/21 10/21/21 Range/Units 20:25 20:25 WBC (3.8-10.6) k/uL RBC (3.80-5.40) m/uL Hgb (11.4-16.0) gm/dL Hct (34.0-46.0) % MCV (80.0-100.0) fL MCH (25.0-35.0) pg MCHC (31.0-37.0) g/dL RDW (11.5-15.5) % Plt Count (150-450) k/uL MPV Neutrophils % % Lymphocytes % % Monocytes % % Eosinophils % % Basophils % % Neutrophils # (1.3-7.7) k/uL Lymphocytes # (1.0-4.8) k/uL Monocytes # (0-1.0) k/uL Eosinophils # (0-0.7) k/uL Basophils # (0-0.2) k/uL PT (9.0-12.0) sec INR (<1.2) APTT (22.0-30.0) sec D-Dimer 0.73 H (<0.60) mg/L FEU Sodium (137-145) mmol/L Potassium (3.5-5.1) mmol/L Chloride (98-107) mmol/L Carbon Dioxide (22-30) mmol/L Anion Gap mmol/L BUN (7-17) mg/dL Creatinine (0.52-1.04) mg/dL Est GFR (CKD-EPI)AfAm (>60 ml/min/1.73 sqM) Est GFR (CKD-EPI)NonAf (>60 ml/min/1.73 sqM) Glucose (74-99) mg/dL Calcium (8.4-10.2) mg/dL Magnesium (1.6-2.3) mg/dL Total Bilirubin (0.2-1.3) mg/dL AST (14-36) U/L ALT (4-34) U/L Alkaline Phosphatase (38-126) U/L Troponin I <0.012 (0.000-0.034) ng/mL Total Protein (6.3-8.2) g/dL Albumin (3.5-5.0) g/dL Lipase (23-300) U/L - Radiology Data Radiology results: report reviewed, image reviewed CT chest angiography for PE is obtained. Report reviewed in its entirety. Impression by Dr. Rivas shows no evidence of pulmonary embolism. There is some mild atelectasis and pleural reaction at the right lung base. Hepatomegaly. Two-view x-ray of the chest is obtained. Report was reviewed in its entirety. Impression by Dr. Rivas shows no cardiopulmonary disease. No change. Two-view x-ray of the chest is obtained. Report was reviewed in its entirety. Impression by Dr. Rivas shows no cardiopulmonary disease. No change. Disposition Clinical Impression: Anxiety, Chest pain Disposition: HOME SELF-CARE Condition: Good Instructions (If sedation given, give patient instructions): Chest Pain (ED), Anxiety (ED) Additional Instructions: Pelvis the primary care physician for recheck as soon as possible. Follow-up with outpatient mental health services as soon as possible. Continue current medications as directed. Return for any new, worsening, or concerning symptoms. Is patient prescribed a controlled substance at d/c from ED?: No Referrals: Lb Herrera MD [Primary Care Provider] - 1-2 days Time of Disposition: 00:59
--- NOTE | 2021-10-21 20:10 | XR ---
EXAMINATION TYPE: XR chest 2V DATE OF EXAM: 10/21/2021 COMPARISON: September 26, 2021 HISTORY: Difficulty breathing TECHNIQUE: 2 views FINDINGS: Heart and mediastinum are normal. Lungs are clear of infiltrate. There is right central nemesio ous catheter with tip in the superior vena cava. Bony thorax is intact. IMPRESSION: No cardiopulmonary disease. No change.
[2021-10-21 20:51] LABS: Basophils # (A) 0.1 k/uL (0-0.2); Basophils % (A) 1 %; Eosinophils # (A) 0.1 k/uL (0-0.7); Eosinophils % (A) 1 %; HGB 13.8 gm/dL (11.4-16.0); Lymphocytes # (A) 1.9 k/uL (1.0-4.8); Lymphocytes % (A) 19 %; MCH 26.8 pg (25.0-35.0); MCHC 32.9 g/dL (31.0-37.0); MCV 81.5 fL (80.0-100.0); Mean Platelet Volume 7.6; Monocytes # (A) 0.5 k/uL (0-1.0); Monocytes % (A) 5 %; Neutrophils # (A) 7.4 k/uL (1.3-7.7); Neutrophils % (A) 73 %; Platelet Count 292 k/uL (150-450); RBC 5.15 m/uL (3.80-5.40); RDW 15.2 % (11.5-15.5); WBC 10.1 k/uL (3.8-10.6)
[2021-10-21 21:01] LABS: ALT 19 U/L (4-34); AST 25 U/L (14-36); African American GFR (CKD) >90 (>60 ml/min/1.73 sqM); Albumin 3.4 g/dL (3.5-5.0); Alkaline Phosphatase 93 U/L (38-126); Anion Gap 9 mmol/L; Blood Urea Nitrogen 5 mg/dL (7-17); Calcium 8.9 mg/dL (8.4-10.2); Carbon Dioxide 20 mmol/L (22-30); Chloride 107 mmol/L (98-107); Glucose 123 mg/dL (74-99); Lipase 38 U/L (23-300); Magnesium 1.9 mg/dL (1.6-2.3); Non-African American GFR(CKD) 79 (>60 ml/min/1.73 sqM); Partial Thromboplastin Time 23.1 sec (22.0-30.0); Potassium 3.5 mmol/L (3.5-5.1); Prothrombin Time 10.9 sec (9.0-12.0); Sodium 136 mmol/L (137-145); Total Bilirubin 0.3 mg/dL (0.2-1.3)
[2021-10-21] MEDS ORDERED: MORPHINE SULFATE 4 MG/ML SYRINGE IVP STA (23:03)
[2021-10-22] MEDS ORDERED: ONDANSETRON 4 MG/2 ML VIAL IVP STA (00:57)
[2021-10-22] MEDS ORDERED: LORazepam 2 MG/ML INJ IV STA (00:57)
--- NOTE | 2021-10-22 00:57 | CT ---
EXAMINATION TYPE: CT chest angio for PE DATE OF EXAM: 10/22/2021 COMPARISON: None HISTORY: chest pain CT DLP: 1098.9 mGycm Automated exposure control for dose reduction was used. CONTRAST: Performed with IV Contrast, patient injected with 100 mL of Isovue 370. There are 3-D post processed images. There is mild subsegmental atelectasis right lung base. Heart size is normal. There is no pericardial effusion. There is no mediastinal adenopathy. There are no hilar masses. There is normal contrast opacification of the pulmonary arteries. There are no filling defects. Thoracic aorta is intact. There is no aneur ysm or dissection. Ascending aorta measures 3.5 cm. Thoracic spine is intact. There is no compression fracture. There is some mild spurring in the thorac ic spine. Liver appears enlarged. IMPRESSION: No evidence of pulmonary embolism. There is some mild atelectasis and pleural reaction at the right l brenda base. Hepatomegaly.
[2021-10-22] MEDS ORDERED: HYDROmorphone 2 MG TAB PO ONE ×2 (01:30→02:15)
[2021-10-22] MEDS ORDERED: HYDROmorphone 1 MG/ML 1 ML SYRINGE IVP STA (02:41)
[2021-10-22 03:23] VITALS: BP 143/84; PULSE 77; RESP 22
== END 2021-10-22 03:04 | disposition home or self-care (01) ==
LOC: EC 18:45
DX: R07.9 Chest pain, unspecified (principal); F41.9 Anxiety disorder, unspecified; J45.909 Unspecified asthma, uncomplicated; M19.90 Unspecified osteoarthritis, unspecified site; F31.9 Bipolar disorder, unspecified; F43.10 Post-traumatic stress disorder, unspecified; Z79.51 Long term (current) use of inhaled steroids
CPT/HCPCS: 82075; 93005; 85379; 80053; 83690; 83735; 84484; 85025; 85610; 85730; 71046; 71275; 99285; 96374; 96375 ×2; 96376 ×3; J2060 ×2; J2270; J2405 ×2; Q9967